=== PATIENT | male | born 1995 | race Caucasian/White ===

== ENCOUNTER 2020-08-01 14:57 | Emergency (ER) | payer MEDICAID, SELFPAY ==
[2020-08-01 17:05] VITALS: BP 146/80; PULSE 82; RESP 18; TEMP 37.1; O2SAT 100; BMI 23.7
[2020-08-01 17:47] VITALS: BP 132/82; PULSE 78; RESP 16; TEMP 36.7; O2SAT 98
--- NOTE | 2020-08-01 17:50 | ED.EYEPROB ---
HPI - Eye Problem General Chief complaint: Eye Problems Stated complaint: eye infection Time Seen by Provider: 08/01/20 17:43 Source: patient Mode of arrival: ambulatory Limitations: no limitations History of Present Illness HPI Narrative: 24 y/o male presenting with acute onset of left upper eye swelling that started yesterday. Reports mild irritated skin in his eyebrow he thought was an ingrown hair. He tried to pop it but nothing came out. When he woke up this morning the redness, pain and swelling had increased significantly. He now has some blurred vision in his left eye. Does not wear contacts or glasses. No fever or chills. MD chief complaint: eye pain and eye redness Onset (ago): day(s) (1) Onset description: sudden Duration: constant Location: left eye Eye Symptoms: burning, redness and pain Place: home Mechanism: none Severity: severe If Pain, Quality: sharp and aching Associated symptoms: none Treatments Prior to Arrival: none Related Data Previous Rx's Medication Instructions Recorded amoxicillin-pot clavulanate 1 tab PO BID #14 tab 08/01/20 [Augmentin] sulfamethoxazole-trimethoprim 1 tab PO BID #14 tab 08/01/20 [Bactrim DS] Allergies Allergy/AdvReac Type Severity Reaction Status Date / Time No Known Allergies Allergy Verified 08/01/20 17:42 [No Known Allergies*] Review of Systems Review of Systems: Constitutional: No Fever, No Chills ENT/Mouth: No sore throat, No Rhinorrhea, No Swallowing Difficulty Eyes: + Eye Pain, + Swelling, + Redness, No discharge, +blurred vision Cardiovascular: No Chest Pain, No SOB Respiratory: No Cough, No Sputum Musculoskeletal: No joint pain, No Myalgias Skin: + Skin Lesions, No rash Neuro: No Dizziness, No Headache Psych: No Anxiety/Panic, No Depression Heme/Lymph: No Bruising, No Lymphadenopathy PMFSH Past Medical History Attestation statement: The following information was validated with the patient. Social History Social History Smoking Status: Current every day smoker Substance Use Type: Marijuana Advance Directives: No Advance Directives Information Provided: No Physical Exam Vital Signs: Vital Signs: Last Vital Signs Temp 98.1 F 08/01/20 17:47 Pulse 78 08/01/20 17:47 Resp 16 08/01/20 17:47 BP 132/82 08/01/20 17:47 Pulse Ox 98 08/01/20 17:47 Body Mass Index 23.7 Appearance: Alert. Oriented X3. No acute distress. Eyes: left upper eye with significant edema, erythema and tenderness, small pustule seen within left eyebrow. EOMI. PERRLA bilaerally. no injection or discharge. ENT: Pharynx normal. Neck: Normal inspection. Neck supple. CVS: Normal heart rate and rhythm. Pulses normal. Respiratory: No respiratory distress. Breath sounds normal. Skin: Skin warm and dry. Normal skin color. Normal skin turgor. No rashes. Extremities: No lower extremity edema. Neuro: Oriented X 3. No motor deficit. No sensory deficit. Course Course Course Narrative: 24 y/o male presenting with left eye pain - upper eye/orbital erythema, tenderness, edema consistent with periorbital cellulitis. EOMI, afebrile. STAT dose of bactrim and augmentin were given here for broad coverage. Management and close follow up discussed with patient who expressed understanding. Will refer to Dr. Dyson and have him f/u with PCP tomorrow. Critical Care Time Critical Care Time Critical Care Time: No Discharge Plan Discharge Clinical Impression: Periorbital cellulitis Qualifiers: Laterality: left Qualified Code(s): L03.213 - Periorbital cellulitis Patient Disposition: Home, Self-Care Instructions: Periorbital Cellulitis in Adults (ED) Additional Instructions: Take the prescribed antibiotics for a full 7 days. Follow up with the eye doctor tomorrow. If the redness, pain, swelling get worse despite antibiotics come back to the ER [facility]. Use warm compresses to your eye several times per day. Follow up with your doctor tomorrow. Prescriptions: New sulfamethoxazole-trimethoprim [Bactrim DS] 800-160 mg tablet 1 tab PO BID Qty: 14 RF: 0 amoxicillin-pot clavulanate [Augmentin] 875-125 mg tablet 1 tab PO BID Qty: 14 RF: 0 Referrals: Trev Dyson [Physician] - 1 day (periorbital cellulitis with blurred vision)
[2020-08-01] MEDS: Amoxicillin/Potassium Clav 875 MG TABLET PO (18:00)
== END 2020-08-01 18:29 | disposition home or self-care (01) ==
LOC: HO.ED 17:57
PROVIDERS: Emergency Provider Emergency Medicine; PCP Internal Medicine
DX: L03.213 Periorbital cellulitis (principal); H57.12 Ocular pain, left eye; F17.200 Nicotine dependence, unspecified, uncomplicated; Z71.6 Tobacco abuse counseling; Z79.899 Other long term (current) drug therapy
CPT/HCPCS: 99283; 99284

== ENCOUNTER 2021-04-04 06:15 | Inpatient (IN) | payer OTHER, MEDICAID, SELFPAY ==
--- NOTE | 2021-04-04 | ECG_ITS ---
Test Reason : OVERDOSE Blood Pressure : / mmHG Vent. Rate : 070 BPM Atrial Rate : 070 BPM P-R Int : 136 ms QRS Dur : 104 ms QT Int : 394 ms P-R-T Axes : 048 089 072 degrees QTc Int : 425 ms Normal sinus rhythm with sinus arrhythmia Incomplete right bundle branch block Borderline ECG When compared with ECG of 01-AUG-2018 08:04, No significant change was found Referred By: Larissa Gong Electronically Signed By:BLANCA GIVENS
[2021-04-04 06:16] VITALS: BP 126/83; PULSE 60; RESP 10; O2SAT 98; BMI 20.8
--- NOTE | 2021-04-04 06:30 | PC.NURSE ---
Pt arrives from home by EMS, CAOx4, speaking full sentences, following commands appropriately, after intentionally ingesting approx 100 tablets of 800 mg Gabapentin. Per EMS, the quantity in the bottle was 360, filled in February. After intentional ingestion of self reported 100 tablets, per EMS, only approx 75 tablets were left from the RX. Per EMS, multiple pills of Gabapentin scattered throughout pts room. Pt self reports ingesting the Gabapentin @ 0500. Per EMS, increased family stress at home with parents. Pt Sec 12ed on scene with PD. 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 Pt states that he takes Subs but has been without them for several days. MD at bedside for eval. IV established, labs obtained. VSS at this time. Harjinder LINDER contacting Poison Control for further instructions.
[2021-04-04 06:32] LABS: MANUAL DIFF FLAG NO
--- NOTE | 2021-04-04 06:34 | ED_ITS ---
HPI - Overdose General Chief Complaint: Overdose Stated Complaint: OD Time Seen by Provider: 04/04/21 06:31 Source: patient and EMS Mode of arrival: EMS Limitations: no limitations History of Present Illness HPI Narrative: Patient comes to the emergency room via EMS after attempting suicide by ingesting approximately 100 tablets of 800 mg of gabapentin, which he ingested approximately between 5 and 05:30. Patient states that he has been having a rough time living with his parents, seems that he does not get along with his father. Patient states that he has tried committing suicide approximately 3 years ago by trying to overdose. 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 Patient was sectioned by police department for in the field. At this time, patient denies any abdominal pain, no vomiting or diarrhea, no chest pain or shortness of breath. Related Data Previous Rx's Medication Instructions Recorded amoxicillin 875 mg-potassium 1 tab PO BID #14 tab 08/01/20 clavulanate 125 mg tablet (Augmentin) sulfamethoxazole 800 1 tab PO BID #14 tab 08/01/20 mg-trimethoprim 160 mg tablet (Bactrim DS) Allergies Allergy/AdvReac Type Severity Reaction Status Date / Time No Known Allergies Allergy Verified 08/01/20 17:42 [No Known Allergies*] Review of Systems Review of Systems: Constitutional : No Weight loss, No Fever, No Chills, No Night Sweats, No Fatigue, No Malaise ENT/Mouth : No Hearing loss, No Ear Pain, No Nasal Congestion, No Sinus Pain, No Hoarseness, No sore throat, No Rhinorrhea, No Swallowing Difficulty Eyes: No Eye Pain, No Swelling, No Redness, No Foreign Body, No Discharge, No Vision Changes Cardiovascular : No Chest Pain, No SOB, No Dyspnea on Exertion, No Orthopnea, No Edema, No Palpitations Respiratory : No Cough, No Sputum, No Wheezing, No Smoke Exposure, No Dyspnea Gastrointestinal : No Nausea, No Vomiting, No Diarrhea, No Constipation, No abdominal Pain, No Hematochezia, No Melena Genitourinary : no irregular bleeding, No Dysuria, No Urinary Frequency, No Hematuria, No Urinary Incontinence, No Urgency, No Flank Pain, No Urinary Flow Changes, No Hesitancy Musculoskeletal : No joint pain, No Myalgias, No Joint Swelling Skin : No Skin Lesions, No rash Neuro : No Weakness, No Numbness, No Paresthesias, No Loss of Consciousness, No Dizziness, No Headache Psych : Complaining of severe depression, attempted suicide, no HI Heme/Lymph: No Bruising, No Bleeding,No Lymphadenopathy Endocrine : No Polyuria, No Polydipsia, No Temperature Intolerance [facility] Past Medical History Medical History (Updated 04/04/21 @ 13:33 by Larissa Gong MD) Suicide attempt Social History Social History Alcohol intake: never Patient Tobacco Use Status: Current someday Tobacco user Use of substances other than those prescribed or required for medical reasons: No Substance Use Type: Marijuana Advance Directives: No Advance Directives Information Provided: No Physical Exam Vital Signs: Vital Signs: Last Vital Signs Pulse 70 04/04/21 10:05 Resp 16 04/04/21 10:05 BP 116/86 04/04/21 10:05 Pulse Ox 98 04/04/21 10:05 Body Mass Index 20.8 Const: Other: Appearance: Alert. Oriented X3. No acute distress. Eyes: Pupils equal, round and reactive to light. ENT: Pharynx normal. Neck: Normal inspection. Neck supple. No lymph nodes noted. No crepitus CVS: Normal heart rate and rhythm. Pulses normal. Normal S1 and S2 Respiratory: No respiratory distress. Breath sounds normal. No Wheezing. No rales Abdomen: Soft and nontender. No rigidity. No distention. good BS x4 Skin: Skin warm and dry. Normal skin color. Normal skin turgor. Extremities: No lower extremity edema. No Lacerations. No Rash Neuro: Oriented X 3. No motor deficit. No sensory deficit. Moving all extermities. No slurred speech. Cranial nerves 2-12 grossly intact Psych: Flat affect, calm cooperative Course Course Course Narrative: Poison control was contacted, at this time activated charcoal and gastric lavage is not indicated. Only observation and repeat labs in 4 hours Patient is on a Section 12, [facility] consult pending Patient is still somnolent, easily arousable, vitals stable. 4 hour level salicylate and acetaminophen negative. [facility] consult pending. Physician of oanh mera started at 13:30. Vitals stable Patient was evaluated by the care team/[facility]. Patient will be admitted to on April 05 in the morning. MDM - Overdose Lab Data Result diagrams: 04/04/21 06:27 04/04/21 09:18 Labs: Lab Results 04/04/21 04/04/21 04/04/21 Range/Units 06:27 06:27 06:27 WBC 7.3 (4.8-10.8) X10*3/uL RBC 4.43 L (4.60-5.80) X10*6/uL Hgb 14.2 (14.0-18.0) g/dl Hct 41.3 L (42-52) % MCV 93.2 (80-98) fL MCH 32.1 (27.0-33.0) pg MCHC 34.4 (31.0-36.0) g/dl RDW 12.0 (11.0-16.0) % Plt Count 233 (160-400) X10*3/uL MPV 9.6 (9.4-12.4) fL Immature Gran % (Auto) 0.3 (0.0-0.4) % Neut % (Auto) 55.7 (45-73) % Lymph % (Auto) 33.0 (20-40) % [place] % (Auto) 9.8 (2-11) % Eos % (Auto) 0.8 (0-4) % Baso % (Auto) 0.4 (0-2) % Lymph # (Auto) 2.4 (1.2-4.9) X10*3/uL [place] # (Auto) 0.7 (0.1-1.2) X10*3/uL Eos # (Auto) 0.1 (0.0-0.4) X10*3/uL Baso # (Auto) 0.0 (0.0-0.2) X10*3/uL Abs Immat Gran (auto) 0.02 (0.00-0.03) X10*3/uL Absolute Neuts (auto) 4.1 (2.0-8.3) X10*3/uL Absolute Nucleated RBC 0.000 (0.0-0.012) X10*3/uL Nucleated RBC % (auto) 0.0 (0.0-0.2) /100WBC PT (9.9-13.0) SEC INR (0.9-1.1) Sodium 142 (135-145) mmol/L Potassium 3.8 (3.3-5.1) mmol/L Chloride 105 (96-108) mmol/L Carbon Dioxide 28 (22-29) mmol/L Anion Gap 13 (12-20) BUN 9 (9-16) mg/dL Creatinine 0.89 (0.5-1.4) mg/dL Estim Creat Clear Calc 126.3 Estimated GFR > 60 Random Glucose 109 (60-115) mg/dL Calcium 9.4 (8.4-10.2) mg/dL Total Bilirubin 1.7 H (0.0-1.0) mg/dL Direct Bilirubin 0.6 H (0.0-0.5) mg/dL AST 13 (5-37) U/L ALT 22 (0-40) U/L Alkaline Phosphatase 63 (39-117) U/L Total Protein 6.5 (6.5-8.0) g/dL Albumin 4.1 (3.5-5.0) g/dL Urine Color Urine Appearance Urine pH (5.0-8.0) Ur Specific [place] (1.005-1.025) Urine Protein (NEG-TRACE) MG/DL Urine Glucose (UA) (NEG) MG/DL Urine Ketones (NEG) MG/DL Urine Blood (NEG) Urine Nitrite (NEG) Ur Leukocyte Esterase (NEG) Salicylates < 5.0 L (15-30) mg/dL Urine Opiates Screen (Not Detect) Urine Fentanyl Screen (Not Detect) Acetaminophen < 1 (<30) mcg/mL Ur Barbiturates Screen (Not Detect) Ur Phencyclidine Scrn (Not Detect) Ur Amphetamines Screen (Not Detect) U Benzodiazepines Scrn (Not Detect) Urine Cocaine Screen (Not Detect) U Marijuana (THC) Screen (Not Detect) Ethyl Alcohol < 10 mg/dL COVID-19 (LIZETH) (Negative) COVID-19 Clin Com 04/04/21 04/04/21 04/04/21 Range/Units 06:27 07:58 09:18 WBC (4.8-10.8) X10*3/uL RBC (4.60-5.80) X10*6/uL Hgb (14.0-18.0) g/dl Hct (42-52) % MCV (80-98) fL MCH (27.0-33.0) pg MCHC (31.0-36.0) g/dl RDW (11.0-16.0) % Plt Count (160-400) X10*3/uL MPV (9.4-12.4) fL Immature Gran % (Auto) (0.0-0.4) % Neut % (Auto) (45-73) % Lymph % (Auto) (20-40) % [place] % (Auto) (2-11) % Eos % (Auto) (0-4) % Baso % (Auto) (0-2) % Lymph # (Auto) (1.2-4.9) X10*3/uL [place] # (Auto) (0.1-1.2) X10*3/uL Eos # (Auto) (0.0-0.4) X10*3/uL Baso # (Auto) (0.0-0.2) X10*3/uL Abs Immat Gran (auto) (0.00-0.03) X10*3/uL Absolute Neuts (auto) (2.0-8.3) X10*3/uL Absolute Nucleated RBC (0.0-0.012) X10*3/uL Nucleated RBC % (auto) (0.0-0.2) /100WBC PT 12.5 (9.9-13.0) SEC INR 1.1 (0.9-1.1) Sodium 141 (135-145) mmol/L Potassium 4.0 (3.3-5.1) mmol/L Chloride 111 H (96-108) mmol/L Carbon Dioxide 25 (22-29) mmol/L Anion Gap 9 L (12-20) BUN 8 L (9-16) mg/dL Creatinine 0.70 (0.5-1.4) mg/dL Estim Creat Clear Calc 160.6 Estimated GFR > 60 Random Glucose 103 (60-115) mg/dL Calcium 8.9 (8.4-10.2) mg/dL Total Bilirubin 1.8 H (0.0-1.0) mg/dL Direct Bilirubin 0.6 H (0.0-0.5) mg/dL AST 14 (5-37) U/L ALT 24 (0-40) U/L Alkaline Phosphatase 61 (39-117) U/L Total Protein 6.2 L (6.5-8.0) g/dL Albumin 3.9 (3.5-5.0) g/dL Urine Color Urine Appearance Urine pH (5.0-8.0) Ur Specific [place] (1.005-1.025) Urine Protein (NEG-TRACE) MG/DL Urine Glucose (UA) (NEG) MG/DL Urine Ketones (NEG) MG/DL Urine Blood (NEG) Urine Nitrite (NEG) Ur Leukocyte Esterase (NEG) Salicylates < 5.0 L (15-30) mg/dL Urine Opiates Screen (Not Detect) Urine Fentanyl Screen (Not Detect) Acetaminophen < 1 (<30) mcg/mL Ur Barbiturates Screen (Not Detect) Ur Phencyclidine Scrn (Not Detect) Ur Amphetamines Screen (Not Detect) U Benzodiazepines Scrn (Not Detect) Urine Cocaine Screen (Not Detect) U Marijuana (THC) Screen (Not Detect) Ethyl Alcohol mg/dL COVID-19 (LIZETH) Negative (Negative) COVID-19 Clin Com See Note 04/04/21 04/04/21 Range/Units 14:01 14:01 WBC (4.8-10.8) X10*3/uL RBC (4.60-5.80) X10*6/uL Hgb (14.0-18.0) g/dl Hct (42-52) % MCV (80-98) fL MCH (27.0-33.0) pg MCHC (31.0-36.0) g/dl RDW (11.0-16.0) % Plt Count (160-400) X10*3/uL MPV (9.4-12.4) fL Immature Gran % (Auto) (0.0-0.4) % Neut % (Auto) (45-73) % Lymph % (Auto) (20-40) % [place] % (Auto) (2-11) % Eos % (Auto) (0-4) % Baso % (Auto) (0-2) % Lymph # (Auto) (1.2-4.9) X10*3/uL [place] # (Auto) (0.1-1.2) X10*3/uL Eos # (Auto) (0.0-0.4) X10*3/uL Baso # (Auto) (0.0-0.2) X10*3/uL Abs Immat Gran (auto) (0.00-0.03) X10*3/uL Absolute Neuts (auto) (2.0-8.3) X10*3/uL Absolute Nucleated RBC (0.0-0.012) X10*3/uL Nucleated RBC % (auto) (0.0-0.2) /100WBC PT (9.9-13.0) SEC INR (0.9-1.1) Sodium (135-145) mmol/L Potassium (3.3-5.1) mmol/L Chloride (96-108) mmol/L Carbon Dioxide (22-29) mmol/L Anion Gap (12-20) BUN (9-16) mg/dL Creatinine (0.5-1.4) mg/dL Estim Creat Clear Calc Estimated GFR Random Glucose (60-115) mg/dL Calcium (8.4-10.2) mg/dL Total Bilirubin (0.0-1.0) mg/dL Direct Bilirubin (0.0-0.5) mg/dL AST (5-37) U/L ALT (0-40) U/L Alkaline Phosphatase (39-117) U/L Total Protein (6.5-8.0) g/dL Albumin (3.5-5.0) g/dL Urine Color YELLOW Urine Appearance HAZY Urine pH 6.5 (5.0-8.0) Ur Specific [place] 1.020 (1.005-1.025) Urine Protein TRACE (NEG-TRACE) MG/DL Urine Glucose (UA) NEG (NEG) MG/DL Urine Ketones NEG (NEG) MG/DL Urine Blood NEG (NEG) Urine Nitrite NEG (NEG) Ur Leukocyte Esterase NEG (NEG) Salicylates (15-30) mg/dL Urine Opiates Screen Not Detected (Not Detect) Urine Fentanyl Screen Not Detected (Not Detect) Acetaminophen (<30) mcg/mL Ur Barbiturates Screen Not Detected (Not Detect) Ur Phencyclidine Scrn Not Detected (Not Detect) Ur Amphetamines Screen Not Detected (Not Detect) U Benzodiazepines Scrn POSITIVE H (Not Detect) Urine Cocaine Screen POSITIVE H (Not Detect) U Marijuana (THC) Screen POSITIVE H (Not Detect) Ethyl Alcohol mg/dL COVID-19 (LIZETH) (Negative) COVID-19 Clin Com ECG Data Attestation: I personally reviewed and interpreted this ECG as follows: (Normal sinus rhythm, heart rate 70, incomplete need a right bundle-branch block, nonspecific ST segment elevation in V3 and V4, no reciprocal changes, QTC 425) Discharge Plan Discharge Clinical Impression: Suicide attempt, Gabapentin overdose Patient Disposition: Admitted As Inpatient Prescriptions: No Action sulfamethoxazole-trimethoprim [Bactrim DS] 800-160 mg tablet 1 tab PO BID Qty: 14 RF: 0 amoxicillin-pot clavulanate [Augmentin] 875-125 mg tablet 1 tab PO BID Qty: 14 RF: 0
--- NOTE | 2021-04-04 06:34 | PC.NURSE ---
this nurse contacted poison control regarding this pt. poison control stated that gabapentin by itself even in heavy amounts will only cause sedation but when taken with other substances there is a risk for seizures. 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 notified
[2021-04-04 06:41] LABS: INTERNATIONAL NORM RATIO 1.1 (0.9-1.1); Prothrombin Time 12.5 SEC (9.9-13.0)
[2021-04-04 06:47] LABS: Basophils Percent Auto 0.4 % (0-2); Eosinophils Absolute Auto 0.1 X10*3/uL (0.0-0.4); Eosinophils Percent Auto 0.8 % (0-4); Hematocrit 41.3 % (42-52); Hemoglobin 14.2 g/dl (14.0-18.0); Imm Gran Abs Auto 0.02 X10*3/uL (0.00-0.03); Imm Gran Pct Auto 0.3 % (0.0-0.4); Lymphocytes Absolute Auto 2.4 X10*3/uL (1.2-4.9); Mean Corpuscular HGB Conc 34.4 g/dl (31.0-36.0); Mean Corpuscular Hemoglobin 32.1 pg (27.0-33.0); Mean Corpuscular Volume 93.2 fL (80-98); Mean Platelet Volume 9.6 fL (9.4-12.4); Monocytes Absolute Auto 0.7 X10*3/uL (0.1-1.2); Monocytes Percent Auto 9.8 % (2-11); Neutrophils Absolute Auto 4.1 X10*3/uL (2.0-8.3); Neutrophils Percent Auto 55.7 % (45-73); Platelet Count 233 X10*3/uL (160-400); Red Blood Count 4.43 X10*6/uL (4.60-5.80); White Blood Count 7.3 X10*3/uL (4.8-10.8)
[2021-04-04 06:53] LABS: Ethanol < 10 mg/dL
[2021-04-04 06:58] LABS: Acetaminophen LAB < 1 mcg/mL (<30); Alanine Aminotransferase 22 U/L (0-40); Albumin Level 4.1 g/dL (3.5-5.0); Alkaline Phosphatase 63 U/L (39-117); Anion Gap 13 (12-20); Aspartate Amino Transferase 13 U/L (5-37); Bilirubin Direct 0.6 mg/dL (0.0-0.5); Bilirubin Total 1.7 mg/dL (0.0-1.0); Blood Urea Nitrogen 9 mg/dL (9-16); Calcium 9.4 mg/dL (8.4-10.2); Carbon Dioxide 28 mmol/L (22-29); Chloride 105 mmol/L (96-108); Creatinine Clr Calc Pharmacy 126.3; Estimated Glomerular Filt Rate > 60; Glucose Random 109 mg/dL (60-115); Potassium 3.8 mmol/L (3.3-5.1); Salicylate < 5.0 mg/dL (15-30); Sodium 142 mmol/L (135-145); Total Protein 6.5 g/dL (6.5-8.0)
--- NOTE | 2021-04-04 07:00 | PC.NURSE ---
report taken from jayme hollins pt here for intentional overdose, poison control consulted. awaiting lab results. pt vss, alert to voice. appears calm and cooperative w this rn. rr even/unlabored on ra. sitter in place for safety. pt sectioned d/t intentional overdose. wctm.
[2021-04-04 07:01] VITALS: BP 113/68; PULSE 65; RESP 16; O2SAT 97
[2021-04-04 08:02] VITALS: BP 115/65; PULSE 64; RESP 14; O2SAT 94
--- NOTE | 2021-04-04 08:03 | ECG_ITS ---
Test Reason : OVERDOSE Blood Pressure : / mmHG Vent. Rate : 064 BPM Atrial Rate : 064 BPM P-R Int : 140 ms QRS Dur : 108 ms QT Int : 418 ms P-R-T Axes : 056 082 064 degrees QTc Int : 431 ms Normal sinus rhythm Incomplete right bundle branch block Cannot rule out Anterior infarct , age undetermined Abnormal ECG When compared with ECG of 04-APR-2021 06:24, No significant change was found Referred By: Larissa Gong Electronically Signed By:BLANCA GIVENS
[2021-04-04 08:19] LABS: COVID-19 Test Negative (Negative)
--- NOTE | 2021-04-04 08:36 | PC.NURSE ---
Call from poison control , updated on pts status. recommend continued observation
[2021-04-04 10:00] LABS: Alanine Aminotransferase 24 U/L (0-40); Albumin Level 3.9 g/dL (3.5-5.0); Alkaline Phosphatase 61 U/L (39-117); Anion Gap 9 (12-20); Aspartate Amino Transferase 14 U/L (5-37); Bilirubin Direct 0.6 mg/dL (0.0-0.5); Bilirubin Total 1.8 mg/dL (0.0-1.0); Blood Urea Nitrogen 8 mg/dL (9-16); Calcium 8.9 mg/dL (8.4-10.2); Carbon Dioxide 25 mmol/L (22-29); Chloride 111 mmol/L (96-108); Creatinine Clr Calc Pharmacy 160.6; Estimated Glomerular Filt Rate > 60; Glucose Random 103 mg/dL (60-115); Sodium 141 mmol/L (135-145); Total Protein 6.2 g/dL (6.5-8.0)
[2021-04-04 10:05] VITALS: BP 116/86; PULSE 70; RESP 16; O2SAT 98
[2021-04-04 10:21] LABS: Acetaminophen LAB < 1 mcg/mL (<30); Salicylate < 5.0 mg/dL (15-30)
--- NOTE | 2021-04-04 11:30 | PC.NURSE ---
pt is sleeping resp even and unlabored.
--- NOTE | 2021-04-04 12:25 | PC.NURSE ---
[facility]A [facility]ONILLA COMPLETED AND SENT
[2021-04-04 14:10] LABS: Glucose Urine UA NEG (NEG); Leukocyte Esterase Urine NEG (NEG); Nitrite Urine NEG (NEG); PH 6.5 (5.0-8.0); Urine Blood NEG (NEG); Urine Ketones NEG (NEG); Urine Protein TRACE MG/DL (NEG-TRACE)
[2021-04-04 14:11] LABS: Appearance Urine HAZY; Color Urine YELLOW
--- NOTE | 2021-04-04 14:27 | MHC.CARE ---
Patient evaluated by CARE Team, he will need a psychiatric admission, written assessment to follow. Has been pre-accepted for tomorrow. Providers updated.
[2021-04-04 14:32] LABS: Amphetamine Screen Urine Not Detected (Not Detect); Barbiturates, Urine Not Detected (Not Detect); Benzodiazepines Screen Urine POSITIVE (Not Detect); Cannabinoid Screen Urine POSITIVE (Not Detect); Cocaine Screen Urine POSITIVE (Not Detect); Fentanyl, urine Not Detected (Not Detect); Opiate Screen Urine Not Detected (Not Detect); Phencyclidine Screen Urine Not Detected (Not Detect)
--- NOTE | 2021-04-04 14:36 | PC.NURSE ---
attempted times 2 to fax release to [employer] in regards to suboxone dosing [phone]
[2021-04-04 16:26] VITALS: BP 111/54; PULSE 64; TEMP 36.8; O2SAT 98
[2021-04-04] MEDS: Buprenorphine/Naloxone 8/2 mg FILM 1 FILM SUBLINGUAL ×2 (17:07→20:36)
--- NOTE | 2021-04-04 20:21 | MHC.CARE ---
Auth for psychiatric admission obtained: [id number] 3 days 04/05-04/07 approved by Teresa
[2021-04-04 23:38] VITALS: BP 125/73; PULSE 68; RESP 16; TEMP 36.5; O2SAT 99
--- NOTE | 2021-04-05 06:45 | PC.NURSE ---
Patient slept through the night, no distress observed/reported, medication compliant, behavior appropriate, disposition per care team inpatient bed search, VSS, will continue to monitor.
[2021-04-05 07:41] VITALS: BP 134/69; PULSE 58; RESP 20; TEMP 36.6; O2SAT 100
[2021-04-05] MEDS: Buprenorphine/Naloxone 8/2 mg FILM 1 FILM SUBLINGUAL ×2 (08:01→20:36)
[2021-04-05] MEDS: diazePAM 5 MG TABLET 10 MG PO (16:20)
[2021-04-05] MEDS: Amphetamine Mixed Salts 10 MG TABLET PO (16:20)
[2021-04-05] MEDS: Nicotine Polacrilex 2 MG GUM 4 MG BUCCAL ×2 (16:21→19:27)
[2021-04-05 16:23] VITALS: BP 136/94; PULSE 64; RESP 16; TEMP 36.8; O2SAT 100
--- NOTE | 2021-04-05 16:26 | PC.ADMIT ---
Pt admitted from [facility] on a conditional voluntary following an intentional over dose on gabapentin. Per crisis eval pt took 100 tablets of 800mg gabapentin in an attempted suicide. During admission process PT states I did what I did because I was a week into suboxone withdrawal PT denies SI at this time states once I got my dose downstairs it was a complete 180 Tox screen was positive for benzos, cocaine, and marijuana. PT states that he would like to be set up with the suboxone clinic here stating that he was 10 minutes late for an appointment at his clinic and they cancelled his appointment. PT reports he does have a problem with anxiety and depression coming out as anger, pt reports he has a lot rage. PT signed a 3-day letter upon arrival. 15 minute checks initiated for safety.
--- NOTE | 2021-04-05 20:09 | MHC.RECOVSUP ---
? Reason for consult Recovery Support o Current location: [facility] o Identified substance use concern: Heroin - Support ? Intervention: o MAT started at [facility] o Community resources provided o Harm reduction discussion ? Plan: o Referral to CCC o Patient to follow up with [facility] after discharge ? Additional information: met with Patient and we talk about recovery and Harm reduction.. Patient is on MAT and will continue with the CCC.
[2021-04-05 20:39] VITALS: BP 136/67; PULSE 97; TEMP 36.2; O2SAT 96
[2021-04-06] MEDS: hydrOXYzine HCL 25 MG TABLET PO ×2 (01:03→23:12)
[2021-04-06] MEDS: Buprenorphine/Naloxone 8/2 mg FILM 1 FILM SUBLINGUAL ×2 (08:14→20:53)
[2021-04-06] MEDS: Amphetamine Mixed Salts 10 MG TABLET PO ×2 (08:14→15:00)
[2021-04-06] MEDS: Nicotine 21 MG PATCH.TD24 TRANSDERMA (08:15)
[2021-04-06 09:00] VITALS: BP 127/60; PULSE 64; RESP 14; TEMP 37; O2SAT 100
[2021-04-06] MEDS: Nicotine Polacrilex 2 MG GUM 4 MG BUCCAL ×3 (09:40→18:08)
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
--- NOTE | 2021-04-06 18:04 | MHC.RECOVSUP ---
Per patient request I was ask to go talk with patient. Patient wanted to talk more about recovery and Goals.
[2021-04-06 19:57] VITALS: BP 148/89; PULSE 98; RESP 18; TEMP 37.3; O2SAT 100
[2021-04-06] MEDS: Lithium Carbonate ER 450 MG TABLET.ER 900 MG PO (20:52)
[2021-04-07] MEDS: Nicotine Polacrilex 2 MG GUM 4 MG BUCCAL ×4 (01:06→18:31)
[2021-04-07 06:00] VITALS: BP 130/79; PULSE 77; RESP 16; TEMP 36.9; O2SAT 96
[2021-04-07] MEDS: Nicotine 21 MG PATCH.TD24 TRANSDERMA (09:07)
[2021-04-07] MEDS: Amphetamine Mixed Salts 10 MG TABLET PO ×2 (09:09→13:53)
[2021-04-07] MEDS: Buprenorphine/Naloxone 8/2 mg FILM 1 FILM SUBLINGUAL ×2 (09:36→20:35)
--- NOTE | 2021-04-07 12:57 | P.PNPSI_ITS ---
Subjective Subjective Date of Service: 04/07/21 Reason For Visit: Suicide attempt Interim History: pt reports he slept in interview room on mattress on the floor due to new roommate who was loud all night. otherwise no questions or complaints. states he feels more even on lithium and would like to continue the trial. planning for discharge tomorrow, as his 3-day notice matures. per s taff, pleasant, friendly, journaling. doing yoga. med-compliant. denying SI/HI. planning to discharge tomorrow. Mental Status Exam Mental Status Exam Narrative: appropriately dressed and groomed. PMA of frequent positional changes. cooperative. speech incr in rate, amount. nml loudness, decr latency. thoughts linear and logical. affect full range, hyper-intense, non- labile; somewhat euphoric. no SI/HI/AVH expressed. Diagnostics Vital Signs (24Hr): Vital Signs - 24 hr 04/06/21 19:57 04/07/21 06:00 Temperature 99.2 F 98.4 F Pulse Rate 98 77 Respiratory Rate 18 16 Blood Pressure 148/89 H 130/79 Pulse Oximetry 100 96 Body Mass Index 20.8 Labs Results: 04/04/21 06:27 04/04/21 09:18 Medications Medications Current Medications Generic Name Dose Route Start Last Admin Trade Name Liliya PRN Reason Stop Dose Admin Acetaminophen 650 mg 04/05/21 14:03 Acetaminophen 325 Mg Tablet PO Q6H PRN Headache/Pain Mild Scale (1-3) Al Hydroxide/Mg Hydroxide 30 ml 04/05/21 14:03 Magnesium Hydrox/Alum Hydrox 30 Ml Oral.Susp PO Q6H PRN Heartburn/Nausea Amphetamine/Dextroamphetamine 20 mg 04/05/21 09:00 04/07/21 09:08 Dextroamphetami/Amphetamine Xr 10 Mg Cap.Er.24h PO 20 mg DAILY SUNITA Administration Amphetamine/Dextroamphetamine 10 mg 04/05/21 09:00 04/07/21 09:09 Amphetamine Mixed Salts 10 Mg Tablet PO 10 mg BID@0900,1400 SUNITA Administration Buprenorphine/Naloxone 1 film 04/04/21 21:00 04/07/21 09:36 Buprenorphine/Naloxone 8/2 Mg Film SUBLINGUAL 1 film BID SUNITA Administration Hydroxyzine HCl 25 mg 04/05/21 14:03 04/06/21 23:12 Hydroxyzine Hcl 25 Mg Tablet PO 25 mg BEDTIME PRN Administration Anxiety [place] Carbonate 900 mg 04/06/21 21:00 04/06/21 20:52 [place] Carbonate Er 450 Mg Tablet.Er PO 900 mg BEDTIME SUNITA Administration Magnesium Hydroxide 30 ml 04/05/21 14:03 Milk Of Magnesia 30 Ml Oral.Susp PO DAILY PRN Constipation Nicotine 21 mg 04/06/21 09:00 04/07/21 09:07 Nicotine 21 Mg Patch.Td24 TRANSDERMA 21 mg DAILY SUNITA Administration Nicotine Polacrilex 4 mg 04/05/21 14:03 04/07/21 10:09 Nicotine Polacrilex 2 Mg Gum BUCCAL 4 mg Q2H PRN Administration Nicotine Cravings Trazodone HCl 50 mg 04/05/21 14:03 Trazodone Hcl 50 Mg Tablet PO BEDTIME PRN Insomnia Allergies Allergies Allergy/AdvReac Type Severity Reaction Status Date / Time No Known Allergies Allergy Verified 08/01/20 17:42 [No Known Allergies*] Assessment & Plan Assessment & Plan (1) Unspecified episodic mood disorder: Status: Acute Code(s): F39 - Unspecified mood [affective] disorder Assessment and Plan: paxil and prozac made him zombified. effexor gave him SI. wellbutrin upset his stomach and gave him SI. unstable and unpredictable moods, believes mother has bipolar disorder. interested in mood stabilizer trial. (2) Opioid use disorder: Status: Acute Code(s): F11.99 - Opioid use, unspecified with unspecified opioid-induced disorder Assessment and Plan: suboxone 8 mg BID (3) ADHD: Status: Acute Code(s): F90.9 - Attention-deficit hyperactivity disorder, unspecified type Assessment and Plan: stimulants Assessment and Plan: as above. started lithium 900 mg QHS as of 04/06. tolerating well. 3-day matures 04/08. discharge to home 04/08. Greater than 50% of the session was spent on counseling and/or coordination of care Reason for contiued inpatient stay Substantial Risk for: harm to self, inability to function and rapid decompensation
[2021-04-07] MEDS: hydrOXYzine HCL 25 MG TABLET PO (13:53)
[2021-04-07] MEDS: chlorproMAZINE HCl 25 MG TABLET 50 MG PO ×2 (14:04→18:31)
[2021-04-07] MEDS: Lithium Carbonate ER 450 MG TABLET.ER 900 MG PO (20:35)
[2021-04-07 20:38] VITALS: BP 121/62; PULSE 112; TEMP 36.8; O2SAT 99
[2021-04-08 06:00] VITALS: BP 110/62; PULSE 73; RESP 18; TEMP 36.2; O2SAT 100
[2021-04-08] MEDS: Nicotine 21 MG PATCH.TD24 TRANSDERMA (08:28)
[2021-04-08] MEDS: Amphetamine Mixed Salts 10 MG TABLET PO (08:29)
[2021-04-08] MEDS: Buprenorphine/Naloxone 8/2 mg FILM 1 FILM SUBLINGUAL (09:14)
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
== END 2021-04-08 11:05 | disposition home or self-care (01) | DRG 753 ==
LOC: HO.ED 16:07 → HO.PADLT16 04-05 13:58
PROVIDERS: Admitting Provider Psychiatry & Neurology Psychiatry; Emergency Provider Emergency Medicine; Visit Provider Psychiatry & Neurology Psychiatry
DX: F39 Unspecified mood [affective] disorder (principal); R45.851 Suicidal ideations; F11.20 Opioid dependence, uncomplicated; F17.210 Nicotine dependence, cigarettes, uncomplicated; F90.9 Attention-deficit hyperactivity disorder, unspecified type; Z20.822 Contact with and (suspected) exposure to COVID-19; Z91.5 Personal history of self-harm; Z71.6 Tobacco abuse counseling; Z79.899 Other long term (current) drug therapy
CPT/HCPCS: 36415; 80048; 80053; 80076; 80143; 80179; 80307; 81003; 82077; 82248; 85025; 85610; 87635; 93005; 99285

== ENCOUNTER → 2021-04-15 10:25 | Outpatient (BNVA) | payer MEDICAID, SELFPAY | PROVIDERS: Visit Provider Internal Medicine | DX: F11.99 Opioid use, unspecified with unspecified opioid-induced disorder (principal); F90.9 Attention-deficit hyperactivity disorder, unspecified type; F14.10 Cocaine abuse, uncomplicated; F12.90 Cannabis use, unspecified, uncomplicated; F17.200 Nicotine dependence, unspecified, uncomplicated | CPT/HCPCS: 80305; 99202 ==

== ENCOUNTER → 2021-04-22 10:44 | Outpatient (BNVA) | payer MEDICAID, SELFPAY | PROVIDERS: Visit Provider Internal Medicine | DX: F11.20 Opioid dependence, uncomplicated (principal); Z51.81 Encounter for therapeutic drug level monitoring; Z79.899 Other long term (current) drug therapy | CPT/HCPCS: 80305; 99212 ==

== ENCOUNTER → 2021-05-05 09:57 | Outpatient (BNVA) | payer MEDICAID, SELFPAY | PROVIDERS: Visit Provider Nurse Practitioner Psychiatric/Mental Health | DX: Z51.81 Encounter for therapeutic drug level monitoring (principal); F11.90 Opioid use, unspecified, uncomplicated; F14.10 Cocaine abuse, uncomplicated | CPT/HCPCS: 80305; 99212 ==

== ENCOUNTER → 2021-05-12 15:41 | Outpatient (BNVA) | payer MEDICAID, SELFPAY | PROVIDERS: Visit Provider Nurse Practitioner Psychiatric/Mental Health | DX: F11.99 Opioid use, unspecified with unspecified opioid-induced disorder (principal); F14.10 Cocaine abuse, uncomplicated; F12.10 Cannabis abuse, uncomplicated; T42.6X1A Poisoning by other antiepileptic and sedative-hypnotic drugs, accidental (unintentional), initial encounter; F17.210 Nicotine dependence, cigarettes, uncomplicated; Z51.81 Encounter for therapeutic drug level monitoring | CPT/HCPCS: 80305; 99212 ==

== ENCOUNTER → 2021-06-16 14:15 | Outpatient (BNVA) | payer MEDICAID, SELFPAY | PROVIDERS: Visit Provider Nurse Practitioner Psychiatric/Mental Health | DX: Z51.81 Encounter for therapeutic drug level monitoring (principal); F11.90 Opioid use, unspecified, uncomplicated; F14.10 Cocaine abuse, uncomplicated | CPT/HCPCS: 80305; 99212 ==

== ENCOUNTER → 2021-07-07 14:55 | Outpatient (BNVA) | payer MEDICAID, SELFPAY | PROVIDERS: Visit Provider Nurse Practitioner Psychiatric/Mental Health | DX: Z51.81 Encounter for therapeutic drug level monitoring (principal); F11.20 Opioid dependence, uncomplicated | CPT/HCPCS: 80305; 99212 ==

== ENCOUNTER 2021-08-04 14:57 | Outpatient (REF) | payer MEDICAID, SELFPAY ==
[2021-08-07 07:41] LABS: Buprenorphine 62; Naloxone 119; Norbuprenorphine 253
== END 2021-08-04 14:58 | disposition home or self-care (01) ==
LOC: HO.LAB 14:57
PROVIDERS: Visit Provider Nurse Practitioner Psychiatric/Mental Health
DX: F11.99 Opioid use, unspecified with unspecified opioid-induced disorder (principal)
CPT/HCPCS: 80305; 80348; 80362; 99211

== ENCOUNTER → 2021-08-18 15:08 | Outpatient (BNVA) | payer MEDICAID, SELFPAY | PROVIDERS: Visit Provider Nurse Practitioner Psychiatric/Mental Health | DX: Z51.81 Encounter for therapeutic drug level monitoring (principal); F11.20 Opioid dependence, uncomplicated | CPT/HCPCS: 80305; 99211 ==

== ENCOUNTER → 2021-09-01 14:04 | Outpatient (BNVA) | payer MEDICAID, SELFPAY | PROVIDERS: Visit Provider Nurse Practitioner Psychiatric/Mental Health | DX: Z51.81 Encounter for therapeutic drug level monitoring (principal); F11.20 Opioid dependence, uncomplicated | CPT/HCPCS: 80305 ==

== ENCOUNTER → 2021-09-15 14:34 | Outpatient (BNVA) | payer MEDICAID, SELFPAY | PROVIDERS: Visit Provider Nurse Practitioner Psychiatric/Mental Health | DX: Z51.81 Encounter for therapeutic drug level monitoring (principal); F11.20 Opioid dependence, uncomplicated | CPT/HCPCS: 80305; 99211 ==

== ENCOUNTER → 2021-10-06 13:43 | Outpatient (BNVA) | payer MEDICAID, SELFPAY | PROVIDERS: Visit Provider Nurse Practitioner Psychiatric/Mental Health | DX: Z51.81 Encounter for therapeutic drug level monitoring (principal); F11.20 Opioid dependence, uncomplicated | CPT/HCPCS: 80305 ==

== ENCOUNTER → 2021-10-27 09:46 | Outpatient (BNVA) | payer MEDICAID, SELFPAY | PROVIDERS: Visit Provider Nurse Practitioner Psychiatric/Mental Health | DX: Z51.81 Encounter for therapeutic drug level monitoring (principal); F11.20 Opioid dependence, uncomplicated | CPT/HCPCS: 80305; 99212 ==

== ENCOUNTER 2021-11-24 09:29 | Outpatient (REF) | payer MEDICAID, SELFPAY ==
[2021-11-24 18:05] LABS: Fentanyl, urine Not Detected (Not Detect)
== END 2021-11-24 09:30 | disposition home or self-care (01) ==
LOC: HO.LAB 09:29
PROVIDERS: Visit Provider Nurse Practitioner Psychiatric/Mental Health
DX: F11.20 Opioid dependence, uncomplicated (principal); Z51.81 Encounter for therapeutic drug level monitoring; Z79.899 Other long term (current) drug therapy
CPT/HCPCS: 80305; 80307; 80348; 80362; 99211

== ENCOUNTER → 2022-01-19 10:51 | Outpatient (BNVA) | payer MEDICAID, SELFPAY | PROVIDERS: Visit Provider Nurse Practitioner Psychiatric/Mental Health | DX: Z51.81 Encounter for therapeutic drug level monitoring (principal); F11.20 Opioid dependence, uncomplicated | CPT/HCPCS: 80305; 99211 ==

== ENCOUNTER → 2022-02-16 08:54 | Outpatient (BNVA) | payer MEDICAID, SELFPAY | PROVIDERS: Visit Provider Nurse Practitioner Psychiatric/Mental Health | DX: F11.20 Opioid dependence, uncomplicated (principal) | CPT/HCPCS: 80305; 99212 ==

== ENCOUNTER → 2022-03-16 09:03 | Outpatient (BNVA) | payer MEDICAID, SELFPAY | PROVIDERS: Visit Provider Nurse Practitioner Psychiatric/Mental Health | DX: F11.21 Opioid dependence, in remission (principal); Z79.899 Other long term (current) drug therapy | CPT/HCPCS: 99212 ==

== ENCOUNTER → 2022-05-25 09:34 | Outpatient (BNVA) | payer MEDICAID, SELFPAY | PROVIDERS: Visit Provider Nurse Practitioner Psychiatric/Mental Health | DX: F11.21 Opioid dependence, in remission (principal); Z51.81 Encounter for therapeutic drug level monitoring; Z79.899 Other long term (current) drug therapy | CPT/HCPCS: 80305; 99212 ==

== ENCOUNTER → 2022-07-06 09:34 | Outpatient (BNVA) | payer MEDICAID, SELFPAY | PROVIDERS: Visit Provider Nurse Practitioner Psychiatric/Mental Health | DX: Z51.81 Encounter for therapeutic drug level monitoring (principal); F11.21 Opioid dependence, in remission | CPT/HCPCS: 80305; 99212 ==

== ENCOUNTER → 2022-09-08 09:22 | Outpatient (BNVA) | payer MEDICAID, SELFPAY | PROVIDERS: Visit Provider Nurse Practitioner Psychiatric/Mental Health | DX: F11.20 Opioid dependence, uncomplicated (principal) | CPT/HCPCS: 80305; 99212 ==

== ENCOUNTER → 2022-11-03 09:05 | Outpatient (BNVA) | payer MEDICAID, SELFPAY | PROVIDERS: Visit Provider Nurse Practitioner Psychiatric/Mental Health | DX: Z51.81 Encounter for therapeutic drug level monitoring (principal); F11.21 Opioid dependence, in remission | CPT/HCPCS: 36415; 80053; 80305; 99212 ==

== ENCOUNTER → 2023-01-03 13:14 | Outpatient (BNVA) | payer OTHER, SELFPAY | PROVIDERS: Visit Provider Nurse Practitioner Psychiatric/Mental Health | DX: F11.20 Opioid dependence, uncomplicated (principal) | CPT/HCPCS: 99212 ==

== ENCOUNTER → 2023-01-29 09:57 | Outpatient (BNVA) | payer OTHER, SELFPAY | PROVIDERS: Visit Provider Nurse Practitioner Psychiatric/Mental Health | DX: F11.20 Opioid dependence, uncomplicated (principal) | CPT/HCPCS: 96372; 99212 ==

== ENCOUNTER 2023-03-02 09:52 | Outpatient (AMB) | payer OTHER, SELFPAY ==
--- NOTE | 2023-03-02 10:17 | A.OFFVIS_ITS ---
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 Expressing some frustration around feeling tied down to medications and ultimate goal of going into the [employer]. Requesting films for now as injection has to be refilled and delivered. COUNT INCLUDES THE [facility] Medical History (Updated 01/29/23 @ 12:56 by Cinda Dinero CNP) Cocaine use disorder Gabapentin overdose Marijuana use Opioid use disorder Opioid use disorder, moderate, in early remission, dependence Suicide attempt Tobacco use disorder Social History Household Members: Family Housing: Apartment Do you presently have visiting nurse or other home services: No Alcohol intake: never Patient Tobacco Use Status: Current everyday Tobacco user Tobacco use type: Cigarette Cigarette Packs Per Day: 1 Cigarettes Per Day: 20.0 Second Hand Smoke Exposure: Yes service: No Sexual orientation: Straight/Heterosexual Review of Systems Const Reports as per HPI and Reports no additional complaints Physical Exam Vital Signs: Last Vital Signs Pulse 70 03/02/23 10:22 BP 114/70 03/02/23 10:22 Pulse Ox 99 03/02/23 10:22 Oxygen Delivery Method Room Air 03/02/23 10:22 Const General: cooperative, healthy appearing, comfortable, no acute distress and alert Nutritional Appearance: average body habitus Orientation/consciousness: patient oriented x3 Limitations: no limitations Neuro General: patient oriented x3 Psych Appearance: grossly normal Mental Status: mental status grossly normal Speech and movement: Normal speech and movement present Affect: normal affect Attitude: cooperative Thought process: Normal thought process present Thought content: Normal thought content present Insight: Good insight present (Psych) Judgement: Good judgement present (Psych) Assessment & Plan Assessment & Plan (1) Opioid use disorder, moderate, in sustained remission: Code(s): F11.21 - Opioid dependence, in remission Plan: * injection ordered * follow up 2 weeks Medications: Refilled buprenorphine-naloxone 8-2 mg (Suboxone) 2 film sublingual DAILY 30 ea 0RF Coding Level of Care Code Est Pt Level 3 (54654) Diagnoses Opioid use disorder, moderate, in sustained remission F11.
[2023-03-02 10:22] VITALS: BP 114/70; PULSE 70; O2SAT 99
== END 2023-03-02 11:26 | disposition home or self-care (01) ==
LOC: HO.HCC 09:52
PROVIDERS: Visit Provider Nurse Practitioner Psychiatric/Mental Health
DX: F11.21 Opioid dependence, in remission (principal)
CPT/HCPCS: 99213

== ENCOUNTER → 2023-03-02 09:52 | Outpatient (BNVA) | payer OTHER, SELFPAY | PROVIDERS: Visit Provider Nurse Practitioner Psychiatric/Mental Health | DX: F11.21 Opioid dependence, in remission (principal) | CPT/HCPCS: 99212 ==

== ENCOUNTER 2023-03-09 09:57 | Outpatient (AMB) | payer OTHER, SELFPAY ==
[2023-03-09 10:17] VITALS: BP 110/78; PULSE 82; O2SAT 99
--- NOTE | 2023-03-09 10:17 | MHC.OFFVIS ---
Intake Vital Signs 03/09/23 10:17 BP 110/78 Blood Pressure Location Lt brachial Position Sitting Pulse 82 Pulse Oximetry (%) 99 Intake Visit Reasons: Sub Inj Allergies No Known Allergies [No Known Allergies*] Allergy (Verified 03/02/23 10:22) HPI Sub Inj HPI Details Patient presents for follow up and Sublocade injection No questions at this time Patient brought his own lidocaine, ice packs provided by office to apply prior to injection Doing well with recovery [facility] Medical History (Updated 01/29/23 @ 12:56 by Cinda Dinero CNP) Cocaine use disorder Gabapentin overdose Marijuana use Opioid use disorder Opioid use disorder, moderate, in early remission, dependence Suicide attempt Tobacco use disorder Social History Household Members: Family Housing: Apartment Do you presently have visiting nurse or other home services: No Alcohol intake: never Patient Tobacco Use Status: Current everyday Tobacco user Tobacco use type: Cigarette Cigarette Packs Per Day: 1 Cigarettes Per Day: 20.0 Second Hand Smoke Exposure: Yes service: No Sexual orientation: Straight/Heterosexual Review of Systems Const Reports as per HPI and Reports no additional complaints Physical Exam Vital Signs: Last Vital Signs Pulse 82 03/09/23 10:17 BP 110/78 03/09/23 10:17 Pulse Ox 99 03/09/23 10:17 Const General: cooperative, healthy appearing, comfortable, no acute distress and alert Nutritional Appearance: average body habitus Orientation/consciousness: patient oriented x3 Limitations: no limitations Neuro General: patient oriented x3 Psych Appearance: grossly normal Mental Status: mental status grossly normal Speech and movement: Normal speech and movement present Affect: normal affect Attitude: cooperative Thought process: Normal thought process present Thought content: Normal thought content present Insight: Good insight present (Psych) Judgement: Good judgement present (Psych) Office Meds Sublocade ER Performing Provider: Cinda Dinero CNP Administered by: Cristiana Evans RN on 03/09/23 10:46 Dose Route Admin Location Lot Number Expiration Date [facility] Apparel Embroidery Digitizer 300 mg subcut LLQ [id number] 09/05/24 [address]-6 [employer]. Comments: T/W assessed previous INJ site, no s/s of infection, no pain, no swelling, no redness, no fever. Pt tolerated injection. Reminded to monitor for s/s above and call the [facility]. Pt verbalized understanding. Results AMB 14 Panel Urine Drug Screen Urine Marijuana (THC) Positive Last Edit by Cristiana Evans RN on 03/09/23 10:46 Urine Cocaine Negative Last Edit by Cristiana Evans RN on 03/09/23 10:46 Urine Morphine Negative Last Edit by Cristiana Evans RN on 03/09/23 10:46 Urine Methamphetamine Negative Last Edit by Cristiana Evans RN on 03/09/23 10:46 Urine Amphetamine Negative Last Edit by Cristiana Evnas RN on 03/09/23 10:46 Urine Benzodiazepine Negative Last Edit by Cristiana Evans RN on 03/09/23 10:46 Urine Barbiturates Negative Last Edit by Cristiana Evans RN on 03/09/23 10:46 Urine Methadone Negative Last Edit by Cristiana Evans RN on 03/09/23 10:46 Urine Buprenorphine Positive Last Edit by Cristiana Evans RN on 03/09/23 10:46 Urine Tricyclic Antidepressant Negative Last Edit by Cristiana Evans RN on 03/09/23 10:46 Urine MDMA Negative Last Edit by Cristiana Evans RN on 03/09/23 10:46 Urine Oxycodone Negative Last Edit by Cristiana Evans RN on 03/09/23 10:46 Urine Phencyclidine Negative Last Edit by Cristiana Evans RN on 03/09/23 10:46 Urine Propoxyphene Negative Last Edit by Cristiana Evans RN on 03/09/23 10:46 Results Reviewed Results Reviewed: Laboratory Last Values POC Urine Buprenorphine Positive 03/09/23 10:18 POC Urine Morphine Negative 03/09/23 10:18 POC Urine Oxycodone Negative 03/09/23 10:18 POC Urine Methadone Negative 03/09/23 10:18 POC Urine Propoxyphene Negative 03/09/23 10:18 POC Urine Barbiturates Negative 03/09/23 10:18 POC U Tricyclic Antidpr Negative 03/09/23 10:18 POC Urine PCP Negative 03/09/23 10:18 POC Ur Amphetamines Negative 03/09/23 10:18 POC Ur Methamphetamine Negative 03/09/23 10:18 POC Urine MDMA Negative 03/09/23 10:18 POC Ur Benzodiazepine Negative 03/09/23 10:18 POC Urine Cocaine Negative 03/09/23 10:18 POC Ur Marijuana (THC) Positive 03/09/23 10:18 Assessment & Plan Assessment & Plan (1) Opioid use disorder, moderate, in sustained remission: Code(s): F11.21 - Opioid dependence, in remission Plan: tolerated injection--reported much less discomfort this time follow up 4 weeks Orders: Orders AMB Buprenorphine Injection - Patient Supplied Today F11.21 - Opioid dependence, in remission AMB 14 Panel Urine Drug Screen Today Z51.81 - Encounter for therapeutic drug level monitoring Coding Level of Care Code Est Pt Level 3 (31974) Diagnoses Opioid use disorder, moderate, in sustained remission F11.21
== END 2023-03-09 10:35 | disposition home or self-care (01) ==
LOC: HO.HCC 09:57
PROVIDERS: Visit Provider Nurse Practitioner Psychiatric/Mental Health
DX: F11.21 Opioid dependence, in remission (principal); Z51.81 Encounter for therapeutic drug level monitoring
CPT/HCPCS: 99213; Q9992

== ENCOUNTER → 2023-03-09 09:57 | Outpatient (BNVA) | payer OTHER, SELFPAY | PROVIDERS: Visit Provider Nurse Practitioner Psychiatric/Mental Health | DX: Z51.81 Encounter for therapeutic drug level monitoring (principal); F11.21 Opioid dependence, in remission | CPT/HCPCS: 80305; 96372; 99212 ==

== ENCOUNTER 2023-04-13 09:49 | Outpatient (AMB) | payer OTHER, SELFPAY ==
--- NOTE | 2023-04-13 09:50 | AM.OFFVISNUR ---
Intake Vital Signs 04/13/23 09:57 BP 118/76 Blood Pressure Location Lt radial Position Sitting Pulse 72 Pulse Source Pulse Oximeter Pulse Oximetry (%) 98 Oxygen Delivery Method Room Air Intake Visit Reasons: Sub Inj Intake Note: the patient is here for a sub inj Aquatic Habitat Biologist Required: No Allergies No Known Allergies [No Known Allergies*] Allergy (Verified 04/13/23 09:51) Do you need a note to return to daycare/school/sports/work: No Results AMB 14 Panel Urine Drug Screen Urine Marijuana (THC) Positive Last Edit by Reta Holly CMA on 04/13/23 09:59 Urine Cocaine Negative Last Edit by Reta Holly CMA on 04/13/23 09:59 Urine Morphine Negative Last Edit by Reta Holly CMA on 04/13/23 09:59 Urine Methamphetamine Negative Last Edit by Reta Holly CMA on 04/13/23 09:59 Urine Amphetamine Negative Last Edit by Reta Holly CMA on 04/13/23 09:59 Urine Benzodiazepine Negative Last Edit by Reta Holly CMA on 04/13/23 09:59 Urine Barbiturates Negative Last Edit by Reta Holly CMA on 04/13/23 09:59 Urine Methadone Negative Last Edit by Reta Holly CMA on 04/13/23 09:59 Urine Buprenorphine Positive Last Edit by Reta Holly CMA on 04/13/23 09:59 Urine Tricyclic Antidepressant Negative Last Edit by Reta Holly CMA on 04/13/23 09:59 Urine MDMA Negative Last Edit by Reta Holly CMA on 04/13/23 09:59 Urine Oxycodone Negative Last Edit by Reta Holly CMA on 04/13/23 09:59 Urine Phencyclidine Negative Last Edit by Reta Holly CMA on 04/13/23 09:59 Urine Propoxyphene Negative Last Edit by Reta Holly CMA on 04/13/23 09:59 Coding Assessment & Plan Assessment & Plan Orders: Orders AMB 14 Panel Urine Drug Screen Today Z51.81 - Encounter for therapeutic drug level monitoring
[2023-04-13 09:57] VITALS: BP 118/76; PULSE 72; O2SAT 98
== END 2023-04-13 10:36 | disposition home or self-care (01) ==
LOC: HO.HCC 09:49
DX: F11.21 Opioid dependence, in remission (principal); Z51.81 Encounter for therapeutic drug level monitoring
CPT/HCPCS: Q9991

== ENCOUNTER → 2023-04-13 09:49 | Outpatient (BNVA) | payer OTHER, SELFPAY | DX: F11.20 Opioid dependence, uncomplicated (principal) | CPT/HCPCS: 80305; 96372 ==

== ENCOUNTER 2023-05-11 09:48 | Outpatient (AMB) | payer OTHER, SELFPAY ==
--- NOTE | 2023-05-11 08:52 | AM.OFFVISNUR ---
Intake Vital Signs 05/11/23 09:55 BP 128/74 Blood Pressure Location Lt radial Position Sitting Pulse 88 Pulse Source Pulse Oximeter Pulse Oximetry (%) 96 Oxygen Delivery Method Room Air Intake Visit Reasons: Sub Inj Intake Note: the patient presents for a sub inj Belly Roller Required: No Allergies No Known Allergies [No Known Allergies*] Allergy (Verified 05/11/23 09:56) Do you need a note to return to daycare/school/sports/work: No Nursing Note Pt presents for 4th Sublocade injection. Pt denies problems with injection sites. Pt reports wanting a couple more injections and hopes to taper off Sublocade. Pt reports last opioid use was 09/16/2018 after an overdose. Pt states I haven't touched that stuff since. Pt reports taking 150 mg TRT weekly, reports liver enzymes have decreased. 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 Pt denies questions or concerns at this time. Plan to see in 4 weeks. Office Meds Sublocade 100 mg/0.5 mL solution,extended release subcutaneous syringe Performing Provider: Cinda Dinero CNP Performing Location: [facility] Administered by: Elzbieta Iverson on 05/11/23 10:24 Dose Route Admin Location Dispensed Lot Number Expiration Date [facility] Chief Specialist Leed 100 mg subcut LLQ 0.5 mL [id number] 04/06/24 [id number] [employer]. Comments: Pt tolerated injection well. Educated on signs/symptoms of infection, encouraged to call the office with any questions or concerns. Coding Assessment & Plan Assessment & Plan Orders: Orders AMB Buprenorphine Injection - Patient Supplied Today F11.21 - Opioid dependence, in remission
[2023-05-11 09:55] VITALS: BP 128/74; PULSE 88; O2SAT 96
== END 2023-05-11 10:09 | disposition home or self-care (01) ==
DX: F11.21 Opioid dependence, in remission (principal)

== ENCOUNTER → 2023-05-11 09:48 | Outpatient (BNVA) | payer OTHER, SELFPAY | DX: Z51.81 Encounter for therapeutic drug level monitoring (principal); F11.21 Opioid dependence, in remission | CPT/HCPCS: 96372; Q9992 ==

== ENCOUNTER 2023-06-08 09:41 | Outpatient (AMB) | payer OTHER, SELFPAY ==
--- NOTE | 2023-06-08 10:56 | MHC.AM.SUB ---
Intake Vital Signs 06/08/23 10:58 BP 104/62 Blood Pressure Location Rt brachial Position Sitting Pulse 74 Pulse Source Pulse Oximeter Pulse Oximetry (%) 97 Oxygen Delivery Method Room Air Intake Visit Reasons: Sub Inj Allergies No Known Allergies [No Known Allergies*] Allergy (Verified 05/11/23 09:56) HPI Sub Inj HPI Details Pt presents for OUD follow up and treatment. 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 Denies any breakthrough symptoms, expressing no concerns about recovery at this time. States he intends to taper within the next year. [facility] Medical History (Updated 01/29/23 @ 12:56 by Cinda Dinero CNP) Opioid use disorder, moderate, in early remission, dependence Tobacco use disorder Marijuana use Cocaine use disorder Opioid use disorder Gabapentin overdose Suicide attempt Social History Household Members: Family Housing: Apartment Do you presently have visiting nurse or other home services: No Alcohol intake: never Patient Tobacco Use Status: Current everyday Tobacco user Tobacco use type: Cigarette Cigarette Packs Per Day: 1 Cigarettes Per Day: 20.0 Second Hand Smoke Exposure: Yes service: No Sexual orientation: Straight/Heterosexual Review of Systems Const Reports as per HPI Physical Exam Vital Signs: Last Vital Signs Pulse 74 06/08/23 10:58 BP 104/62 06/08/23 10:58 Pulse Ox 97 06/08/23 10:58 Oxygen Delivery Method Room Air 06/08/23 10:58 Resp Effort & Inspection: normal respiratory effort Skin General skin exam: no rashes or lesions noted Psych Appearance: grossly normal Mental Status: mental status grossly normal Speech and movement: Normal speech and movement present Affect: normal affect Insight: Good insight present (Psych) Judgement: Good judgement present (Psych) Office Meds Sublocade 100 mg/0.5 mL solution,extended release subcutaneous syringe Performing Provider: Melania Blood NP Performing Location: [facility] Administered by: Melania Blood NP on 06/08/23 11:08 Dose Route Admin Location Dispensed Lot Number Expiration Date [facility] Elastic Yarn Twister Helper 100 mg subcut RLQ 0.5 mL [id number] 05/05/24 [address]-3 [employer]. Comments: Pt tolerated injection well, reports it was the best one I've got yet , states minimal pain. Encouraged to call [facility] with questions or concerns. Assessment & Plan Assessment & Plan (1) Opioid use disorder, moderate, in sustained remission: Code(s): F11.21 - Opioid dependence, in remission Plan: Tolerated injection--reported much less discomfort this time. Discussed the Brixadi injection, provided educational literature for pt to take home. He is interested and will call next week if he would like to move forward. Follow up 4 weeks. plan reviewed with [facility] Blood Orders: Orders AMB Buprenorphine Injection - Patient Supplied Today F11.21 - Opioid dependence, in remission Coding Level of Care Code Est Pt Level 3 (87533) Diagnoses Opioid use disorder, moderate, in sustained remission F11.21
[2023-06-08 10:58] VITALS: BP 104/62; PULSE 74; O2SAT 97
== END 2023-06-08 11:00 | disposition home or self-care (01) ==
PROVIDERS: Visit Provider Nurse Practitioner Psychiatric/Mental Health
DX: F11.21 Opioid dependence, in remission (principal)
CPT/HCPCS: 99213

== ENCOUNTER → 2023-06-08 09:41 | Outpatient (BNVA) | payer OTHER, SELFPAY | PROVIDERS: Visit Provider Nurse Practitioner Psychiatric/Mental Health | DX: Z51.81 Encounter for therapeutic drug level monitoring (principal); F11.21 Opioid dependence, in remission | CPT/HCPCS: 96372; 99212; Q9992 ==

== ENCOUNTER 2023-07-06 09:26 | Outpatient (AMB) | payer OTHER, SELFPAY ==
--- NOTE | 2023-07-06 09:36 | MHC.AM.SUB ---
Intake Vital Signs 07/06/23 09:40 BP 110/70 Blood Pressure Location Lt radial Position Sitting Pulse 78 Pulse Source Pulse Oximeter Pulse Oximetry (%) 99 Oxygen Delivery Method Room Air Intake Visit Reasons: Sub Inj Intake Note: the patient presents for a sub inj Hydroelectric Plant Structural Engineer Required: No Allergies No Known Allergies [No Known Allergies*] Allergy (Verified 07/06/23 09:44) Do you need a note to return to daycare/school/sports/work: No PFSH Medical History (Updated 01/29/23 @ 12:56 by Cinda Dinero CNP) Opioid use disorder, moderate, in early remission, dependence Tobacco use disorder Marijuana use Cocaine use disorder Opioid use disorder Gabapentin overdose Suicide attempt Social History Household Members: Family Housing: Apartment Do you presently have visiting nurse or other home services: No Alcohol intake: never Patient Tobacco Use Status: Current everyday Tobacco user Tobacco use type: Cigarette Cigarette Packs Per Day: 1 Cigarettes Per Day: 20.0 Second Hand Smoke Exposure: Yes service: No Sexual orientation: Straight/Heterosexual Physical Exam Vital Signs: Last Vital Signs Pulse 78 07/06/23 09:40 BP 110/70 07/06/23 09:40 Pulse Ox 99 07/06/23 09:40 Oxygen Delivery Method Room Air 07/06/23 09:40 Assessment & Plan Assessment & Plan Orders: Orders AMB Buprenorphine Injection - Patient Supplied Today F11.21 - Opioid dependence, in remission Medications: New Sublocade ER (buprenorphine) 100 mg (0.5 mL) subcut ONCE 0.5 mL 0RF NS F11.21 - Opioid dependence, in remission Coding
[2023-07-06 09:40] VITALS: BP 110/70; PULSE 78; O2SAT 99
--- NOTE | 2023-07-06 10:01 | AM.OFFVISNUR ---
Intake Vital Signs 07/06/23 09:40 BP 110/70 Blood Pressure Location Lt radial Position Sitting Pulse 78 Pulse Source Pulse Oximeter Pulse Oximetry (%) 99 Oxygen Delivery Method Room Air Intake Visit Reasons: Sub Inj Allergies No Known Allergies [No Known Allergies*] Allergy (Verified 07/06/23 09:44) Nursing Note Pt. presents for OUD F/U and sublocade injection. Pt A&O x 4 pleasant and cooperative with care. He shared how his final goal is to taper off the sublocade injection. T/W educated pt on process of steady state and sublocade duration. Pt. reports his recovery is going well. He shared with T/W his main coping mechanism which is the gym. Pt. denies any SE from sublocade injection, systemic or local. Pt also receives counseling services through [facility]. Pt. is motivated for recovery and is actively participating in his treatment. T/W administered sublocade injection as per provider orders. Pt. will F/U in clinic in four weeks for check in and injection. Office Meds Sublocade 100 mg/0.5 mL solution,extended release subcutaneous syringe Performing Provider: Cinda Dinero CNP Performing Location: [facility] [place] Administered by: Claudette Bautista RN on 07/06/23 09:54 Dose Route Admin Location Dispensed Lot Number Expiration Date [facility] Senior Quality Assurance Specialist 100 mg subcut RUQ 0.5 mL [id number] 09/06/24 [address]-9 [employer]. Comments: Pt tolerated injection well. Educated on S/S of infection. Encouraged to call [facility] with questions/concerns. Coding Assessment & Plan Assessment & Plan Orders: Orders AMB Buprenorphine Injection - Patient Supplied Today F11.21 - Opioid dependence, in remission
== END 2023-07-06 11:50 | disposition home or self-care (01) ==
DX: F11.21 Opioid dependence, in remission (principal)

== ENCOUNTER → 2023-07-06 09:26 | Outpatient (BNVA) | payer OTHER, SELFPAY | DX: F11.21 Opioid dependence, in remission (principal); Z51.81 Encounter for therapeutic drug level monitoring; Z79.899 Other long term (current) drug therapy | CPT/HCPCS: 96372; Q9992 ==

== ENCOUNTER 2023-08-02 09:29 | Outpatient (AMB) | payer OTHER, SELFPAY ==
--- NOTE | 2023-08-02 09:31 | AM.OFFVISNUR ---
Intake Vital Signs 08/02/23 09:44 BP 116/78 Blood Pressure Location Lt radial Position Sitting Pulse 96 Pulse Source Pulse Oximeter Pulse Oximetry (%) 98 Oxygen Delivery Method Room Air Intake Visit Reasons: Sub Inj Intake Note: the patient presents for a sub inj Weave Room Supervisor Required: No Allergies No Known Allergies [No Known Allergies*] Allergy (Verified 08/02/23 09:45) Do you need a note to return to daycare/school/sports/work: No Nursing Note Patient is here for 4 week OUD follow up visit and Sublocade injection. Patient is doing well in recovery, going to the gym every morning and working about 60 hours a week. Patient states that he hopes to transition off of injections in about one year. Four week f/u appointment made. Office Meds Sublocade 100 mg/0.5 mL solution,extended release subcutaneous syringe Performing Provider: Melania Blood NP Performing Location: [facility] Administered by: Rosalinda Davenport RN on 08/02/23 10:17 Dose Route Admin Location Dispensed Lot Number Expiration Date [facility] Library Acquisitions Technician 100 mg subcut LUQ 0.5 mL [id number] 08/02/23 [address]-2 [employer]. Comments: Patient denies concerns about previous injection and tolerated injection well. Educated on signs and symptoms of infection, encouraged to call [facility] with any questions or concerns, Pt verbalized understanding. Coding Assessment & Plan Assessment & Plan Orders: Orders AMB Buprenorphine Injection - Patient Supplied Today F11.21 - Opioid dependence, in remission
[2023-08-02 09:44] VITALS: BP 116/78; PULSE 96; O2SAT 98
== END 2023-08-02 10:53 | disposition home or self-care (01) ==
DX: F11.21 Opioid dependence, in remission (principal)

== ENCOUNTER → 2023-08-02 09:29 | Outpatient (BNVA) | payer OTHER, SELFPAY | DX: F11.21 Opioid dependence, in remission (principal) | CPT/HCPCS: 96372; Q9992 ==

== ENCOUNTER 2023-08-30 10:02 | Outpatient (AMB) | payer OTHER, SELFPAY ==
--- NOTE | 2023-08-30 10:02 | AM.OFFVISNUR ---
Intake Vital Signs 08/30/23 10:10 BP 116/70 Blood Pressure Location Lt radial Position Sitting Pulse 72 Pulse Source Pulse Oximeter Pulse Oximetry (%) 97 Oxygen Delivery Method Room Air Intake Visit Reasons: Sub Inj Intake Note: The patient presents for a sub inj Tape Keller Operator Required: No Allergies No Known Allergies [No Known Allergies*] Allergy (Verified 08/02/23 09:45) Do you need a note to return to daycare/school/sports/work: No Nursing Note Patient to office today for Sublocade injection, he had no concerns or stated complications regarding previous injection. Denies any cravings, will call [facility] with any questions or concerns. Pt A+O x4, speaking in clear/full sentences, smiling and appropriate. Office Meds Sublocade 100 mg/0.5 mL solution,extended release subcutaneous syringe Performing Provider: Cinda Dinero CNP Performing Location: [facility] Administered by: Rachael Moe RN on 08/30/23 10:11 Dose Route Admin Location Dispensed Lot Number Expiration Date [facility] Dairy Feed Worker 100 mg subcut 0.5 mL [id number] 09/06/24 [address]-5 [employer]. Coding Assessment & Plan Assessment & Plan Orders: Orders AMB Buprenorphine Injection - Patient Supplied 08/30/23 F11.21 - Opioid dependence, in remission
[2023-08-30 10:10] VITALS: BP 116/70; PULSE 72; O2SAT 97
== END 2023-08-30 10:37 | disposition home or self-care (01) ==
DX: F11.21 Opioid dependence, in remission (principal)

== ENCOUNTER → 2023-08-30 10:02 | Outpatient (BNVA) | payer OTHER, SELFPAY | DX: F11.21 Opioid dependence, in remission (principal) | CPT/HCPCS: 96372; Q9992 ==

== ENCOUNTER 2023-09-28 12:50 | Outpatient (AMB) | payer OTHER, SELFPAY ==
--- NOTE | 2023-09-28 12:58 | MHC.AM.SUB ---
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, has a car now In a new relationship positive outlook, bright affect [facility] Medical History (Updated 09/29/23 @ 20:28 by Cinda Dinero CNP) Opioid use disorder, moderate, in early remission, dependence Tobacco use disorder Marijuana use Cocaine use disorder Opioid use disorder Gabapentin overdose Suicide attempt Social History Household Members: Family Housing: Apartment Do you presently have visiting nurse or other home services: No Alcohol intake: never Patient Tobacco Use Status: Current everyday Tobacco user Tobacco use type: Cigarette Cigarette Packs Per Day: 1 Cigarettes Per Day: 20.0 Second Hand Smoke Exposure: Yes service: No Sexual orientation: Straight/Heterosexual Review of Systems Const Reports as per HPI and Reports no additional complaints Physical Exam Vital Signs: Last Vital Signs BP 110/60 09/28/23 13:00 Pulse Ox 96 09/28/23 13:00 Oxygen Delivery Method Room Air 09/28/23 13:00 Resp Effort & Inspection: normal respiratory effort Skin General skin exam: no rashes or lesions noted Psych Appearance: grossly normal Mental Status: mental status grossly normal Speech and movement: Normal speech and movement present Affect: normal affect Insight: Good insight present (Psych) Judgement: Good judgement present (Psych) Office Meds Sublocade 100 mg/0.5 mL solution,extended release subcutaneous syringe Performing Provider: Cinda Dinero CNP Performing Location: [facility] Administered by: Rachael Moe RN on 09/28/23 13:02 Dose Route Admin Location Dispensed Lot Number Expiration Date [facility] Cloth Bin Packer 100 mg subcut LLQ 0.5 mL [id number] 10/04/24 [id number] [employer] Comments: Patient tolerated injection well with no stated or noted side effects. Verbally agrees to call [facility] with any comments or concerns. Assessment & Plan Assessment & Plan (1) Opioid use disorder, moderate, in sustained remission: Code(s): F11.21 - Opioid dependence, in remission Plan: tolerated injection follow up 4 weeks encouraged to call office prior to next appt if needed Orders: Orders AMB Buprenorphine Injection - Patient Supplied 09/28/23 F11.21 - Opioid dependence, in remission Coding Level of Care Code Est Pt Level 3 (51963) Diagnoses Opioid use disorder, moderate, in sustained remission F11.21
[2023-09-28 13:00] VITALS: BP 110/60; O2SAT 96
== END 2023-09-28 13:21 | disposition home or self-care (01) ==
PROVIDERS: Visit Provider Nurse Practitioner Psychiatric/Mental Health
DX: F11.21 Opioid dependence, in remission (principal)
CPT/HCPCS: 99213

== ENCOUNTER → 2023-09-28 12:50 | Outpatient (BNVA) | payer OTHER, SELFPAY | PROVIDERS: Visit Provider Nurse Practitioner Psychiatric/Mental Health | DX: Z51.81 Encounter for therapeutic drug level monitoring (principal); F11.21 Opioid dependence, in remission | CPT/HCPCS: 96372; 99212; Q9992 ==

== ENCOUNTER 2023-11-01 09:19 | Outpatient (AMB) | payer OTHER, SELFPAY ==
--- NOTE | 2023-11-01 09:26 | AM.OFFVISNUR ---
Intake Vital Signs 11/01/23 09:30 BP 122/78 Blood Pressure Location Lt radial Position Sitting Pulse 66 Pulse Source Pulse Oximeter Pulse Oximetry (%) 98 Oxygen Delivery Method Room Air Intake Visit Reasons: SUB Inj Intake Note: the patient presents for a mat visit Monkey Breeder Required: No Allergies No Known Allergies [No Known Allergies*] Allergy (Verified 11/01/23 09:31) Do you need a note to return to daycare/school/sports/work: No Nursing Note Patient to clinic for Sublocade injection today, it was given in the RUQ, patient tolerated well with no stated or noted complications. Pt is alert and oriented x4, appears in good spirits, alkative, denies cravings in between injections, acknowledges this is about a year now he has been on the injection and is doing well. Office Meds Sublocade 100 mg/0.5 mL solution,extended release subcutaneous syringe Performing Provider: iCnda Dinero CNP Performing Location: [facility] Administered by: Rachael Moe RN on 11/01/23 09:28 Dose Route Admin Location Dispensed Lot Number Expiration Date [facility] Stapler Machine 100 mg subcut RUQ 0.5 mL [id number] 10/04/24 [address]-6 [email or web address] Comments: Patient denies any questions or concerns regarding injection, tolerated well, educated on signs and symptoms to call CCC with. Coding Assessment & Plan Assessment & Plan Orders: Orders AMB Buprenorphine Injection - Patient Supplied Today F11.21 - Opioid dependence, in remission
[2023-11-01 09:30] VITALS: BP 122/78; PULSE 66; O2SAT 98
== END 2023-11-01 09:54 | disposition home or self-care (01) ==
DX: F11.21 Opioid dependence, in remission (principal)

== ENCOUNTER → 2023-11-01 09:19 | Outpatient (BNVA) | payer OTHER, SELFPAY | DX: F11.21 Opioid dependence, in remission (principal); Z51.81 Encounter for therapeutic drug level monitoring; Z79.899 Other long term (current) drug therapy | CPT/HCPCS: 96372; Q9992 ==

== ENCOUNTER 2023-11-29 09:24 | Outpatient (AMB) | payer OTHER, SELFPAY ==
[2023-11-29 09:39] VITALS: BP 118/72; PULSE 90; O2SAT 96
--- NOTE | 2023-11-29 09:39 | AM.OFFVISNUR ---
Intake Vital Signs 11/29/23 09:39 BP 118/72 Blood Pressure Location Rt brachial Position Sitting Pulse 90 Pulse Source Pulse Oximeter Pulse Oximetry (%) 96 Oxygen Delivery Method Room Air Intake Visit Reasons: SUB Inj Allergies No Known Allergies [No Known Allergies*] Allergy (Verified 11/01/23 09:31) Nursing Note Patient is here for 4 week OUD follow-up appointment and monthly Sublocade injection. Patient is alert and oriented x 4 and cooperative with care. Pt expressed no concerns with recovery and no changes in medication. Pt shared that his employment is stable and utilizes the gym daily as a coping mechanism, he stated that he has been experiencing [facility] insomnia and did not sleep well last night however, this is his baseline. Pt felt hot and dizzy immediately post injection. He was given two cups of cold water and monitored for a couple of minutes. He stated that he did not eat breakfast this morning. His vitals were rechecked and normal. Pt follow up appointment made for 4 weeks. Office Meds Sublocade 100 mg/0.5 mL solution,extended release subcutaneous syringe Performing Provider: Melania Blood NP Performing Location: [facility] Administered by: Rosalinda Davenport RN on 11/29/23 09:40 Dose Route Admin Location Dispensed Lot Number Expiration Date [facility] Javascript Software Engineer 100 mg subcut LUQ 0.5 mL [id number] 11/03/24 [address]-0 [employer]. Comments: Patient denies concerns about previous injection and tolerated injection well. Educated on signs and symptoms of infection, encouraged to call CCC with any questions or concerns, Pt verbalized understanding. Coding Assessment & Plan Assessment & Plan Orders: Orders AMB Buprenorphine Injection Today F11.21 - Opioid dependence, in remission Medications: New Sublocade ER (buprenorphine) 100 mg (0.5 mL) subcut ONCE 0.5 mL 0RF NS F11.21 - Opioid dependence, in remission
[2023-11-29 10:12] VITALS: BP 122/78
== END 2023-11-29 10:15 | disposition home or self-care (01) ==
DX: F11.21 Opioid dependence, in remission (principal)

== ENCOUNTER → 2023-11-29 09:24 | Outpatient (BNVA) | payer OTHER, SELFPAY | DX: F11.21 Opioid dependence, in remission (principal); Z79.899 Other long term (current) drug therapy; Z51.81 Encounter for therapeutic drug level monitoring | CPT/HCPCS: 96372; Q9991 ==

== ENCOUNTER 2024-01-04 11:45 | Outpatient (AMB) | payer OTHER, SELFPAY ==
[2024-01-04 11:46] VITALS: BP 132/84; PULSE 69; O2SAT 98
--- NOTE | 2024-01-04 11:46 | AM.OFFVISNUR ---
Intake Vital Signs 01/04/24 11:46 BP 132/84 Blood Pressure Location Lt brachial Position Sitting Pulse 69 Pulse Source Pulse Oximeter Pulse Oximetry (%) 98 Oxygen Delivery Method Room Air Intake Visit Reasons: SUB Inj Allergies No Known Allergies [No Known Allergies*] Allergy (Verified 11/01/23 09:31) Nursing Note Patient to office for sublocade injection, no questions or concerns with previous injection. Pt states he has been doing well in recovery, denies any cravings. Pt is a+Ox4, speaking in clear/full sentences will follow up in 4 weeks, and verbally understands to call with any questions or concerns. 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 Coding Assessment & Plan Assessment & Plan Orders: Orders AMB Buprenorphine Injection - Patient Supplied Today F11.21 - Opioid dependence, in remission Medications: New Sublocade ER (buprenorphine) 100 mg (0.5 mL) subcut ONCE 0.5 mL 0RF NS F11.21 - Opioid dependence, in remission
== END 2024-01-04 11:50 | disposition home or self-care (01) ==
DX: F11.21 Opioid dependence, in remission (principal)

== ENCOUNTER → 2024-01-04 11:45 | Outpatient (BNVA) | payer OTHER, SELFPAY | DX: F11.21 Opioid dependence, in remission (principal) | CPT/HCPCS: 96372; Q9992 ==

== ENCOUNTER 2024-02-13 10:00 | Outpatient (AMB) | payer OTHER, SELFPAY ==
--- NOTE | 2024-02-13 10:09 | AM.OFFVISNUR ---
Intake Visit Reasons: SUB Inj Allergies No Known Allergies [No Known Allergies*] Allergy (Verified 11/01/23 09:31) Nursing Note Patient to clinic today for Sublocade 100mg injection. Alert and oriented x4, denies any complications with previous injection, injection today given per orders in the LLQ. Will follow up in 5 weeks with provider and RN. Patient is considering coming off the medication , he decided to make his next appt 5 weeks out for injection instead of 4, and verbally agrees to call CCC with questions/concerns and knows that if he has cravings he can come in earlier. 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 Assessment & Plan Assessment & Plan Orders: Orders AMB Buprenorphine Injection - Patient Supplied Today F11.21 - Opioid dependence, in remission Medications: New Sublocade ER (buprenorphine) 100 mg (0.5 mL) subcut ONCE 0.5 mL 0RF NS F11.21 - Opioid dependence, in remission
== END 2024-02-13 10:36 | disposition home or self-care (01) ==
DX: F11.21 Opioid dependence, in remission (principal)

== ENCOUNTER → 2024-02-13 10:00 | Outpatient (BNVA) | payer OTHER, SELFPAY | DX: F11.21 Opioid dependence, in remission (principal) | CPT/HCPCS: 96372; Q9992 ==

== ENCOUNTER 2024-03-19 14:40 | Outpatient (AMB) | payer OTHER, SELFPAY ==
--- NOTE | 2024-03-19 14:45 | MHC.AM.SUB ---
Intake Visit Reasons: MAT visit/SUB Inj Allergies No Known Allergies [No Known Allergies*] Allergy (Verified 11/01/23 09:31) HPI HPI MAT visit/SUB Inj: Details: Patient presents for follow up and Sublocade injection Currently at 100mg Last injection was 5 weeks ago he is working towards discontinuing injection. Reports no withdrawal sx. Denies any thoughts of using Bright affect. Excited about his future and the positive things that are occurring He moved in with girlfriend 2 weeks ago living in [place] now starting School at [employer] taking 3 classes --getting certificate in Substance Use counseling [facility] Medical History (Updated 03/19/24 @ 15:03 by Cinda Dinero CNP) Opioid use disorder, moderate, in early remission, dependence Tobacco use disorder Marijuana use Cocaine use disorder Opioid use disorder Gabapentin overdose Suicide attempt Social History Household Members: Family Housing: Apartment Do you presently have visiting nurse or other home services: No Alcohol intake: never Patient Tobacco Use Status: Current everyday Tobacco user Tobacco use type: Cigarette Cigarette Packs Per Day: 1 Cigarettes Per Day: 20.0 Second Hand Smoke Exposure: Yes service: No Sexual orientation: Straight/Heterosexual Review of Systems Const Reports as per HPI and Reports no additional complaints Physical Exam Const General: cooperative, healthy appearing and well groomed Nutritional Appearance: average body habitus Orientation/consciousness: patient oriented x3 Limitations: no limitations Neuro General: patient oriented x3 Psych Appearance: well kempt Speech and movement: Clear speech present Affect: normal affect Attitude: cooperative Thought process: Normal thought process present Thought content: Normal thought content present Insight: Good insight present (Psych) Judgement: Good judgement present (Psych) Office Meds Sublocade 100 mg/0.5 mL solution,extended release subcutaneous syringe Performing Provider: Cinda Dinero CNP Performing Location: [facility] Administered by: Rachael Moe RN on 03/19/24 14:59 Dose Route Admin Location Dispensed Lot Number Expiration Date [facility] 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 Assessment & Plan Assessment & Plan (1) Opioid use disorder, moderate, in sustained remission: Code(s): F11.21 - Opioid dependence, in remission Category: Medical Plan: 100mg injection today next injection in 7 weeks encouraged to call before next injection if needed Orders: Orders AMB Buprenorphine Injection - Patient Supplied 03/19/24 F11.90 - Opioid use, unspecified, uncomplicated
== END 2024-03-19 15:07 | disposition home or self-care (01) ==
DX: F11.21 Opioid dependence, in remission (principal)
CPT/HCPCS: 99213

== ENCOUNTER → 2024-03-19 14:40 | Outpatient (BNVA) | payer OTHER, SELFPAY | DX: F11.21 Opioid dependence, in remission (principal) | CPT/HCPCS: 96372; 99212; Q9992 ==

== ENCOUNTER 2024-11-10 21:06 | Emergency (ER) | payer MEDICAID, SELFPAY ==
--- NOTE | ~2024-11-10 | CT_ITS ---
CLINICAL HISTORY: LUQ pain CT abdomen and pelvis without contrast Comparison: None Findings: The lung bases are clear. The liver, gallbladder, pancreas, spleen, adrenal glands, and kidneys are unremarkable. There is no urolithiasis or hydronephrosis. The gastrointestinal tract is unremarkable. There is no free fluid or free air. The aorta is normal in diameter. There are no enlarged lymph nodes. The bladder is decompressed. There is no fracture or suspicious lytic or sclerotic lesion. IMPRESSION: Unremarkable noncontrast CT of the abdomen and pelvis. This document has been electronically signed by: Yao Arevalo MD on 11/11/2024 02:11:16
[2024-11-10 21:17] VITALS: BP 131/52; PULSE 82; RESP 18; TEMP 36.9; O2SAT 96; BMI 24.4
[2024-11-10 21:36] LABS: MANUAL DIFF FLAG NO
[2024-11-10 21:39] LABS: Basophils Percent Auto 0.2 % (0-2); Eosinophils Absolute Auto 0.1 X10*3/uL (0.0-0.4); Eosinophils Percent Auto 0.6 % (0-4); Hematocrit 42.1 % (42.0-52.0); Hemoglobin 14.7 g/dl (14.0-18.0); Imm Gran Abs Auto 0.01 X10*3/uL (0.00-0.03); Imm Gran Pct Auto 0.1 % (0.0-0.4); Mean Corpuscular HGB Conc 34.9 g/dl (31.0-36.0); Mean Corpuscular Hemoglobin 31.7 pg (27.0-33.0); Mean Corpuscular Volume 90.9 fL (80.0-98.0); Mean Platelet Volume 9.7 fL (9.4-12.4); Monocytes Absolute Auto 0.7 X10*3/uL (0.1-1.2); Monocytes Percent Auto 7.6 % (2-11); Neutrophils Absolute Auto 5.8 x10*3/uL (2.0-8.3); Neutrophils Percent Auto 60.5 % (45-73); Platelet Count 216 X10*3/uL (160-400); Red Blood Count 4.63 X10*6/uL (4.60-5.80); White Blood Count 9.6 X10*3/uL (4.8-10.8)
[2024-11-10 21:52] LABS: Alanine Aminotransferase 13 U/L (0-40); Albumin Level 4.7 g/dL (3.5-5.0); Alkaline Phosphatase 54 U/L (39-117); Anion Gap 11 (12-20); Aspartate Amino Transferase 19 U/L (5-37); Bilirubin Total 0.6 mg/dL (0.0-1.0); Blood Urea Nitrogen 10 mg/dL (9-16); Calcium 9.2 mg/dL (8.4-10.2); Carbon Dioxide 27 mmol/L (22-29); Chloride 108 mmol/L (96-108); Creatinine Clr Calc Pharmacy 137.4; Estimated Glomerular Filt Rate > 60; Glucose Random 98 mg/dL (60-115); Lipase 9 U/L (8-78); Potassium 3.7 mmol/L (3.3-5.1); Sodium 142 mmol/L (135-145); Total Protein 7.2 g/dL (6.5-8.0)
[2024-11-11 00:31] VITALS: RESP 16
--- NOTE | 2024-11-11 00:41 | ED_ITS ---
HPI - Abdominal Pain General Chief Complaint: Abdominal Pain Stated Complaint: abd pain Time Seen by Provider: 11/11/24 00:34 Source: patient Mode of arrival: ambulatory Limitations: no limitations History of Present Illness ED Provider: DR. Purcell HPI narrative: 29-year-old male otherwise healthy complaining of left upper quadrant abdominal pain for the last 2 months, pain has been intermittent feels a lump under his left-sided ribs, patient feel palpable mass under his left rib cage, no known history injury, no dysuria, no frequency urination, no hematuria or dark urine. No fever, no chills, no rectal bleed, no nausea, no vomiting, no weight loss. Patient buys 7 Hydroxymitagynine tablet that he bite from smoke shop to help with the pain but pain is now controlled anymore. Patient last use it yesterday and he get develop symptoms of withdrawal. Related Data Previous Rx's ?Medication ?Instructions ?Recorded nicotine (polacrilex) 2 mg gum 4 mg buccal Q2H PRN Nicotine 04/08/21 Cravings 30 days #180 ea buprenorphine 100 mg/0.5 mL 100 mg (0.5 mL) subcut .monthly 12/27/23 solution,exten.rel.subcutaneous #0.5 mL syringe (Sublocade) buprenorphine 8 mg-naloxone 2 mg 1 film sublingual DAILY #10 ea 12/27/23 sublingual film (Suboxone) buprenorphine 8 mg-naloxone 2 mg 1 film buccal DAILY #21 ea 11/11/24 sublingual film (Suboxone) Allergies Allergy/AdvReac Type Severity Reaction Status Date / Time No Known Allergies Allergy Verified 11/10/24 21:19 [No Known Allergies*] Review of Systems Review of Systems All other systems are reviewed and are negative Constitutional: Reports as per HPI and Reports no additional constitutional complaints Eyes: Reports as per HPI and Reports no additional eye complaints Reports system reviewed and no additional complaints, except as documented Cardiovascular: Reports as per HPI and Reports no additional cardiovascular complaints Respiratory: Reports as per HPI and Reports no additional respiratory complaints Gastrointestinal: Reports as per HPI and Reports no additional gastrointestinal complaints Genitourinary: Reports no additional female genitourinary complaints Musculoskeletal: Reports no additional musculoskeletal complaints Skin/Breast: Reports system reviewed and no additional complaints, except as docu Psychiatric: Reports no additional psychiatric complaints Endocrine: Reports no additional endocrine complaints Hematologic/Lymphatic: Reports no additional hematologic/lymphatic complaints Allergic/Immunologic: Reports no additional allergic/immunologic complaints Reports system reviewed and no additional complaints, except as documented and Reports Abnormal speech present [facility] Past Medical History Medical History Opioid use disorder, moderate, in early remission, dependence Tobacco use disorder Marijuana use Cocaine use disorder Opioid use disorder Gabapentin overdose Suicide attempt Social History Social History Household Members: Family Housing: Apartment Do you presently have visiting nurse or other home services: No Alcohol intake: never Patient Tobacco Use Status: Current everyday Tobacco user Tobacco use type: Cigarette Cigarette Packs Per Day: 1 Cigarettes Per Day: 20.0 Second Hand Smoke Exposure: Yes Substance Use Type: Marijuana service: No Sexual orientation: Straight/Heterosexual Physical Exam ED Vital Signs: Vital Signs - 24 hr 11/10/24 21:17 11/11/24 00:31 11/11/24 02:13 Temperature 98.4 F 97.4 F Pulse Rate 82 51 Respiratory Rate 18 16 18 Blood Pressure 131/52 L 116/67 Pulse Oximetry 96 99 Oxygen Delivery Method Room Air Room Air 11/11/24 04:12 11/11/24 10:10 Temperature 98.3 F Pulse Rate 65 Respiratory Rate 16 20 Blood Pressure 133/70 Pulse Oximetry 100 Oxygen Delivery Method Room Air BMI result Body Mass Index 24.4 Vital signs have been reviewed and appear to be correct. Blood pressure elevated. Heart rate normal. Respiratory rate normal. Temperature normal. Oxygen saturation normal. Appearance: Alert. Oriented X3. No acute distress. Head: Normal external exam. Normocephalic. Atraumatic. No Clark signs noted. No raccoon eyes noted Eyes: PERRLA. EOMI. Conjunctiva and sclera normal. Eyelids normal. ENT: TM's Normal. Pharynx normal. Uvula midline. Moist mucous membranes. No trismus noted. No drooling noted. No muffled voice noted. Neck: Normal inspection. Neck supple. FROM. No adenopathy. Thyroid Normal. No meningeal signs. No neck mass noted. CVS: Normal heart rate and rhythm. Heart sound normal. No murmurs noted. Pulses normal throughout. Respiratory: No respiratory distress. Painless inspiration. Breath sounds normal. No wheezes/rales/rhonchi noted. Chest nontender. No accessory muscle usage noted or decreased air movement noted. Abdomen: Soft, left upper quadrant tenderness, no rebound tenderness, no palpable mass. Bowel sounds normal in all 4 quadrants. No distention noted. No organomegaly noted. No visible injury noted. Back: No CVA tenderness. Full range of motion noted. Skin: Skin warm and dry. Normal skin color. Normal skin turgor. No rashes/lesions/lacerations noted. Extremities: No lower extremity edema. Extremities exhibit normal range of motion. Extremities nontender. Neuro: Oriented X 3. Cranial nerve exam: II-XII are grossly intact No motor deficit. No sensory deficit. Reflexes normal. Course Reevaluation(s) Reevaluation #1: Abdominal pain, CT abdomen pelvis revealed no clear etiology of patient's symptoms, unremarkable labs, unremarkable UA. Time: 02:13 Reevaluation #2: When patient is ready to be discharged he said that he feels suicidal because he gets severe symptoms of 7 hydroxymitragynine that he by from smoke shop and he gets severe withdrawal symptoms and patient is looking for help, at this point patient is one-to-one observation and will order care team and recovery team. Patient is section 12. Time: 02:26 Reevaluation #3: Time: 08:57 Date: 11/11/24 Provider: Janice Benedict DO Patient in physician observation for psychiatric evaluation.? No acute events reported overnight. No current complaints. VS stable.? pending CARE and recovery team evaluation. Will continue to monitor. Additional Reevaluation(s): Time: 10:38 Date: 11/11/24 Provider: Janice Benedict DO Physician observation ended at 1038am. Patient has been cleared for discharge by the CARE/recovery team. Will follow up as an outpatient.Started on suboxone by [facility] Medical Decision Making Differential Diagnosis Differential Diagnoses: The differential diagnosis associated with the presentation includes (UTI, left ureteric stone, pyelonephritis, diverticulitis, colitis, pancreatitis, gallbladder disease.) Admission/Observation Consideration of admission/observation: Escalation of care including admission/observation considered Lab Data MDM Lab Attestation statement: I reviewed the patient's lab results. 11/10/24 21:33 11/10/24 21:33 Labs: Lab Results 11/10/24 11/11/24 Range/Units 21:33 00:53 WBC 9.6 (4.8-10.8) X10*3/uL RBC 4.63 (4.60-5.80) X10*6/uL Hgb 14.7 (14.0-18.0) g/dl Hct 42.1 (42.0-52.0) % MCV 90.9 (80.0-98.0) fL MCH 31.7 (27.0-33.0) pg MCHC 34.9 (31.0-36.0) g/dl RDW 12.0 (11.0-16.0) % Plt Count 216 (160-400) X10*3/uL MPV 9.7 (9.4-12.4) fL Immature Gran % (Auto) 0.1 (0.0-0.4) % Neut % (Auto) 60.5 (45-73) % Lymph % (Auto) 31.0 (20-40) % Kemper % (Auto) 7.6 (2-11) % Eos % (Auto) 0.6 (0-4) % Baso % (Auto) 0.2 (0-2) % Lymph # (Auto) 3.0 (1.2-4.9) X10*3/uL Kemper # (Auto) 0.7 (0.1-1.2) X10*3/uL Eos # (Auto) 0.1 (0.0-0.4) X10*3/uL Baso # (Auto) 0.0 (0.0-0.2) X10*3/uL Abs Immat Gran (auto) 0.01 (0.00-0.03) X10*3/uL Absolute Neuts (auto) 5.8 (2.0-8.3) x10*3/uL Absolute Nucleated RBC 0.000 (0.0-0.012) X10*3/uL Nucleated RBC % (auto) 0.0 (0.0-0.2) /100WBC Sodium 142 (135-145) mmol/L Potassium 3.7 (3.3-5.1) mmol/L Chloride 108 (96-108) mmol/L Carbon Dioxide 27 (22-29) mmol/L Anion Gap 11 L (12-20) BUN 10 (9-16) mg/dL Creatinine 0.93 (0.5-1.4) mg/dL Estim Creat Clear Calc 137.4 Estimated GFR > 60 Random Glucose 98 (60-115) mg/dL Calcium 9.2 (8.4-10.2) mg/dL Total Bilirubin 0.6 (0.0-1.0) mg/dL AST 19 (5-37) U/L ALT 13 (0-40) U/L Alkaline Phosphatase 54 (39-117) U/L Total Protein 7.2 (6.5-8.0) g/dL Albumin 4.7 (3.5-5.0) g/dL Lipase 9 (8-78) U/L Urine Color Dark Yellow Urine Appearance Clear Urine pH 5.5 (5.0-9.0) Ur Specific [place] >= 1.030 H (1.005-1.025) Urine Protein Negative (Neg-Trace) mg/dL Urine Glucose (UA) Negative (Negative) mg/dL Urine Ketones Trace (Negative) mg/dL Urine Blood Negative (Negative) Urine Nitrite Negative (Negative) Ur Leukocyte Esterase Negative (Negative) Urine Opiates Screen Not Detected (Not Detect) Ur Buprenorphine Scrn Not Detected (Not Detect) ng/mL Ur Oxycodone Screen Not Detected (Not Detect) ng/mL Urine Methadone Screen Not Detected (Not Detect) ng/mL Urine Fentanyl Screen Not Detected (Not Detect) Ur Barbiturates Screen Not Detected (Not Detect) Ur Phencyclidine Scrn Not Detected (Not Detect) Ur Amphetamines Screen Not Detected (Not Detect) U Benzodiazepines Scrn Not Detected (Not Detect) Urine Cocaine Screen Not Detected (Not Detect) U Marijuana (THC) Screen POSITIVE H (Not Detect) Independent Interpretation I performed an independent interpretation of an: CT Scan (Abdomen pelvis:Unremarkable noncontrast CT of the abdomen and pelvis.) Radiology Impression Discussion of test interpretation with radiology: I have reviewed the radiologist's reading. Medications Administered Discontinued Medications Generic Name Dose Route Start Last Admin Trade Name Freq PRN Reason Stop Dose Admin Buprenorphine/Naloxone 1 film 11/11/24 09:28 11/11/24 09:56 Buprenorphine/Naloxone 8/2 Mg Film SUBLINGUAL 11/11/24 09:29 1 film ONCE ONE Administration Diphenhydramine HCl 50 mg 11/11/24 03:01 11/11/24 03:06 Diphenhydramine Hcl 25 Mg Capsule PO 11/11/24 03:02 50 mg ONCE ONE Administration Ketorolac Tromethamine 15 mg 11/11/24 00:47 11/11/24 00:51 Ketorolac Tromethamine 15 Mg/Ml Vial IM 11/11/24 00:48 15 mg ONCE ONE Administration Lorazepam 2 mg 11/11/24 03:01 11/11/24 03:07 Lorazepam 2 Mg/Ml Vial IM 11/11/24 03:02 2 mg ONCE ONE Administration Discharge Plan Discharge Clinical Impression: Suicidal ideation Abdominal pain Qualifiers: Abdominal location: generalized Qualified Code(s): R10.84 - Generalized abdominal pain Patient Disposition: Home, Self-Care Instructions: Abdominal Pain (ED), Suicide Prevention (ED) Additional Instructions: Opiate use disorder You were seen in our Emergency Department today for treatment of opiate use disorder. You may have been dosed with medication for opiate use disorder (MOUD) in the form of suboxone or methadone. You may experience feeling some withdrawal symptoms and this is normal. The? dose in the Emergency Department is a starting dose and meant to be titrated up once you follow up with a clinic. Please do not feel discouraged, it is a process. The nurse has reviewed with you where to follow up and what information to bring with you, to continue treatment. You also may have been given naloxone (narcan) to take home with you. This medication is used to potentially treat opiate overdose. If you decide you want to stop or cut down on how much you?re using, you can call or walk into our outpatient Addiction Treatment office: [facility] (M-F 9am-5p) [address] [place] [address], [phone] You may have been provided with safer injection?items, please take time to take care of YOU and your health. Use new supplies whenever possible to lessen the chances of infections and other illnesses.? ?If you need more supplies, please go [facility],? [address] [place] [address] OR you can call or text to coordinate delivery of safer supplies. You were also provided a list of several treatment providers in the area.? If you experience any worsening symptoms you cannot control please return to the ED or call 911. Please follow up at your next appointment. Things to look out for are fevers, chest pain, shortness of breath, severe pain, dizziness, fainting or any other concerns. You were seen in our Emergency Department today for treatment of a behavioral health issue. It is important after your visit that you follow up with either your behavioral health provider or a primary care doctor within 7 days.? If you have trouble finding a therapist you can reach out to [place] [phone] [facility] [place] [facility] can be reached 7 days a week 24 hours a day.? Call [phone] to speak with someone.? Return for any worsening symptoms or concerns such as thoughts of self harm or harm to others. Please call 911 if you feel your mental health is worsening.? Prescriptions: No Action buprenorphine-naloxone [Suboxone] 8-2 mg film 1 film sublingual DAILY Qty: 10 0RF Sublocade 100 mg/0.5 mL solution, extended rel syringe 100 mg subcut .monthly Qty: 0.5 5RF Rx Instructions: F11.20 nicotine (polacrilex) 2 mg Gum 4 mg buccal Q2H PRN (Reason: Nicotine Cravings) 30 Days Qty: 180 0RF Referrals: Cinda Dinero CNP [Nurse Practitioner] - 11/26/24 1:00 pm ([facility] November 26, 2024 1:00PM [address] Please call with any questions! ) Print Language: Salvadorean
[2024-11-11] MEDS: Ketorolac Tromethamine 15 MG/ML VIAL IM (00:51)
[2024-11-11 00:59] LABS: Appearance Urine Clear; Color Urine Dark Yellow; Glucose Urine UA Negative (Negative); Leukocyte Esterase Urine Negative (Negative); Nitrite Urine Negative (Negative); PH 5.5 (5.0-9.0); Specific Gravity - Urine >= 1.030 (1.005-1.025); Urine Blood Negative (Negative); Urine Ketones Trace mg/dL (Negative); Urine Protein Negative (Neg-Trace)
[2024-11-11 02:13] VITALS: BP 116/67; PULSE 51; RESP 18; TEMP 36.3; O2SAT 99
--- NOTE | 2024-11-11 02:29 | PC.NURSE ---
patient was dc by provider. when provider and RN in room to review DC plan patient stated what are you going to do to help with my withdrawals because i will commit suicide tonight if I feel this way . patient stated he buys a drug from the marijuana dispensary that is similar to narcotics that he will with drawl from. patient then informed he now has to stay to see CARE team as well as addiction recovery. patient then stated he isnt SI and he is only here/making statements to abuse the system . patient informed he still has to stay. security at bedside and patient changed over.
[2024-11-11 02:48] LABS: Amphetamine Screen Urine Not Detected (Not Detect); Barbiturates, Urine Not Detected (Not Detect); Benzodiazepines Screen Urine Not Detected (Not Detect); Buprenorphine Scr Not Detected (Not Detect); Cannabinoid Screen Urine POSITIVE (Not Detect); Cocaine Screen Urine Not Detected (Not Detect); Fentanyl, urine Not Detected (Not Detect); Methadone Screen, Urine Not Detected (Not Detect); Opiate Screen Urine Not Detected (Not Detect); Oxycodone Screen Urine Not Detected (Not Detect); Phencyclidine Screen Urine Not Detected (Not Detect)
[2024-11-11] MEDS: diphenhydrAMINE HCL 25 MG CAPSULE 50 MG PO (03:06)
[2024-11-11] MEDS: LORazepam 2 MG/ML VIAL IM (03:07)
--- NOTE | 2024-11-11 03:10 | PC.NURSE ---
IM meds ordered, patient not aggressive and meds not used for restraints. patient requested meds to calm down, patient tearful.
[2024-11-11 04:12] VITALS: RESP 16
--- NOTE | 2024-11-11 09:34 | HO.ADDICT_ITS ---
History of Present Illness Date of Service: 11/11/2024 Chief Complaint: abd pain Reason for Consult: kratom withdrawal Sources of Information: patient interviewed and chart reviewed HPI Narrative: Patient is a 29 year old male with history of OUD, who presented to ED with abdominal pain and reporting Kratom use and withdrawal. Evaluated and cleared by our crisis team as he reported suicidal ideation in the context of withdrawal sx and despair. 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 she does suboxone and stimulants. has been maintained on suboxone for 3 years, sober from opioids for 2. h/o overdoses x2 in 2019 (accidental on opioids?) as well as most recent overdose (intentional, on gabapentin) 03/2021. [place] [facility] [place] [facility] [place]. Review of Systems Constitutional: Reports as per HPI Diagnostics Vital Signs (24Hr): Vital Signs - 24 hr 11/10/24 21:17 11/11/24 00:31 11/11/24 02:13 Temperature 98.4 F 97.4 F Pulse Rate 82 51 Respiratory Rate 18 16 18 Blood Pressure 131/52 L 116/67 Pulse Oximetry 96 99 Oxygen Delivery Method Room Air Room Air 11/11/24 04:12 Temperature Pulse Rate Respiratory Rate 16 Blood Pressure Pulse Oximetry Oxygen Delivery Method BMI result Body Mass Index 24.4 Labs 11/10/24 21:33 11/10/24 21:33 Labs: Laboratory Results - last 48 hr 11/10/24 11/11/24 21:33 00:53 WBC 9.6 RBC 4.63 Hgb 14.7 Hct 42.1 MCV 90.9 MCH 31.7 MCHC 34.9 RDW 12.0 Plt Count 216 MPV 9.7 Immature Gran % (Auto) 0.1 Neut % (Auto) 60.5 Lymph % (Auto) 31.0 [place] % (Auto) 7.6 Eos % (Auto) 0.6 Baso % (Auto) 0.2 Lymph # (Auto) 3.0 [place] # (Auto) 0.7 Eos # (Auto) 0.1 Baso # (Auto) 0.0 Abs Immat Gran (auto) 0.01 Absolute Neuts (auto) 5.8 Absolute Nucleated RBC 0.000 Nucleated RBC % (auto) 0.0 Sodium 142 Potassium 3.7 Chloride 108 Carbon Dioxide 27 Anion Gap 11 L BUN 10 Creatinine 0.93 Estim Creat Clear Calc 137.4 Estimated GFR > 60 Random Glucose 98 Calcium 9.2 Total Bilirubin 0.6 AST 19 ALT 13 Alkaline Phosphatase 54 Total Protein 7.2 Albumin 4.7 Lipase 9 Urine Color Dark Yellow Urine Appearance Clear Urine pH 5.5 Ur Specific [place] >= 1.030 H Urine Protein Negative Urine Glucose (UA) Negative Urine Ketones Trace Urine Blood Negative Urine Nitrite Negative Ur Leukocyte Esterase Negative Urine Opiates Screen Not Detected Ur Buprenorphine Scrn Not Detected Ur Oxycodone Screen Not Detected Urine Methadone Screen Not Detected Urine Fentanyl Screen Not Detected Ur Barbiturates Screen Not Detected Ur Phencyclidine Scrn Not Detected Ur Amphetamines Screen Not Detected U Benzodiazepines Scrn Not Detected Urine Cocaine Screen Not Detected U Marijuana (THC) Screen POSITIVE H Mental Status Exam Mental Status Exam Patient Appearance: Perspiring and Appropriate Patient Orientation: Person, Place, Time and Situation Level of Consciousness: Awake and Appropriate Patient Behavior: Appropriate Mood Description: Anxious Affect Description: Anxious Speech Pattern: Clear Hallucinations: None Thought Content: positive for Intact Judgement: Good Medications Allergies Allergies Allergy/AdvReac Type Severity Reaction Status Date / Time No Known Allergies Allergy Verified 11/10/24 21:19 [No Known Allergies*] Assessment & Plan Assessment & Plan (1) Opiate withdrawal: Status: Acute Code(s): F11.93 - Opioid use, unspecified with withdrawal Assessment and Plan: * kratom withdrawal (mimics opiate withdrawal) * Suboxone 8mg X1 with good effect * follow up with [facility] 11/26 @1pm for continuation of treatment * suboxone rx sent to pharmacy requested by patient--can take 1/2 to 1 film daily Total time managing care of this patient today __30__ minutes. [facility] Past Medical History Medical History Opioid use disorder, moderate, in early remission, dependence Tobacco use disorder Marijuana use Cocaine use disorder Opioid use disorder Gabapentin overdose Suicide attempt Social History Social History Household Members: Family Housing: Apartment Do you presently have visiting nurse or other home services: No Alcohol intake: never Patient Tobacco Use Status: Current everyday Tobacco user Tobacco use type: Cigarette Cigarette Packs Per Day: 1 Cigarettes Per Day: 20.0 Second Hand Smoke Exposure: Yes Substance Use Type: Marijuana service: No Sexual orientation: Straight/Heterosexual
--- NOTE | 2024-11-11 09:41 | MHC.RECOVRN ---
Pt has [facility] appt 11/26/24 at 1PM. Info on discharge paperwork.
[2024-11-11] MEDS: Buprenorphine/Naloxone 8/2 mg FILM 1 FILM SUBLINGUAL (09:56)
[2024-11-11 10:10] VITALS: BP 133/70; PULSE 65; RESP 20; TEMP 36.8; O2SAT 100
--- NOTE | 2024-11-11 11:03 | MHC.CARE ---
Contacted [facility] after faxing referrals for a 3 day follow up and 7 day alert. Kan from [facility] confirms receipt of the fax and the alert and 3 day follow up has been activated.
== END 2024-11-11 10:54 | disposition home or self-care (01) ==
PROVIDERS: Emergency Provider Emergency Medicine
DX: F11.23 Opioid dependence with withdrawal (principal); R45.851 Suicidal ideations; R10.84 Generalized abdominal pain; F11.20 Opioid dependence, uncomplicated; F39 Unspecified mood [affective] disorder; F90.9 Attention-deficit hyperactivity disorder, unspecified type; F17.210 Nicotine dependence, cigarettes, uncomplicated; F12.90 Cannabis use, unspecified, uncomplicated; Z79.899 Other long term (current) drug therapy
CPT/HCPCS: 36415; 74176; 80053; 80307; 81003; 83690; 85025; 96372; 99284; J1885; J2060; S9485

== ENCOUNTER → 2024-11-11 00:39 | Outpatient (BNV) | payer OTHER, SELFPAY | PROVIDERS: Emergency Provider Emergency Medicine; Visit Provider Radiology Diagnostic Radiology | DX: R10.12 Left upper quadrant pain (principal) | CPT/HCPCS: 74176 ==

== ENCOUNTER → 2024-11-11 01:59 | Outpatient (BNV) | payer OTHER, SELFPAY | PROVIDERS: Emergency Provider Emergency Medicine; Visit Provider Nurse Practitioner Psychiatric/Mental Health | DX: F11.93 Opioid use, unspecified with withdrawal (principal) | CPT/HCPCS: 99282 ==

== ENCOUNTER 2024-11-26 12:58 | Outpatient (AMB) | payer OTHER, SELFPAY ==
[2024-11-26 13:12] VITALS: BP 106/60; PULSE 66; O2SAT 99; BMI 22.6
--- NOTE | 2024-11-26 13:12 | MHC.OFFVIS ---
Vital Signs 11/26/24 13:12 Height 6 ft 2 in Weight 176 lb BMI 22.6 BP 106/60 Pulse 66 Pulse Oximetry (%) 99 Intake Visit Reasons: MAT Identifier Horse Required: No Allergies No Known Allergies [No Known Allergies*] Allergy (Verified 11/26/24 13:14) HPI HPI MAT: Details: I had not seen him since 2020. He had been doing well on Sublocade and then reports taking kratom from [employer] and was using more and more and couldnt stop. He started Suboxone 8/2 daily not enough . 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 He is getting narcan downstairs at pharmacy. He is engaged in [facility]. [facility] Medical History Opioid use disorder, moderate, in early remission, dependence Tobacco use disorder Marijuana use Cocaine use disorder Opioid use disorder Gabapentin overdose Suicide attempt Social History Household Members: Family Housing: Apartment Do you presently have visiting nurse or other home services: No Alcohol intake: never Patient Tobacco Use Status: Current everyday Tobacco user Tobacco use type: Cigarette Cigarette Packs Per Day: 1 Cigarettes Per Day: 20.0 Second Hand Smoke Exposure: Yes Substance Use Type: Marijuana service: No Sexual orientation: Straight/Heterosexual Review of Systems Const All systems reviewed & are unremarkable except as noted in HPI and below Physical Exam Vital Signs: Last Vital Signs Pulse 66 11/26/24 13:12 BP 106/60 11/26/24 13:12 Pulse Ox 99 11/26/24 13:12 BMI result Body Mass Index 22.6 Const General: healthy appearing Results AMB 14 Panel Urine Drug Screen Urine Marijuana (THC) Positive Last Edit by Reji Berrios CMA on 11/26/24 13:20 Urine Cocaine Negative Last Edit by Reji Berrios CMA on 11/26/24 13:20 Urine Morphine Negative Last Edit by Reji Berrios CMA on 11/26/24 13:20 Urine Methamphetamine Negative Last Edit by Rjei Berrios CMA on 11/26/24 13:20 Urine Amphetamine Negative Last Edit by Reji Berrios CMA on 11/26/24 13:20 Urine Benzodiazepine Negative Last Edit by Reji Berrios CMA on 11/26/24 13:20 Urine Barbiturates Negative Last Edit by Reji Berrios, DELIO on 11/26/24 13:20 Urine Methadone Negative Last Edit by Reji Berrios, DELIO on 11/26/24 13:20 Urine Buprenorphine Positive Last Edit by Reji Berrios, DELIO on 11/26/24 13:20 Urine Tricyclic Antidepressant Negative Last Edit by Reji Berrios, DELIO on 11/26/24 13:20 Urine MDMA Negative Last Edit by Reji Berrios, DELIO on 11/26/24 13:20 Urine Oxycodone Negative Last Edit by Reji Berrios CMA on 11/26/24 13:20 Urine Phencyclidine Negative Last Edit by Reji Berrios CMA on 11/26/24 13:20 Urine Propoxyphene Negative Last Edit by Reji Berrios CMA on 11/26/24 13:20 Results Reviewed Results Reviewed: Laboratory Last Values POC Urine Buprenorphine Positive 11/26/24 13:17 POC Urine Morphine Negative 11/26/24 13:17 POC Urine Oxycodone Negative 11/26/24 13:17 POC Urine Methadone Negative 11/26/24 13:17 POC Urine Propoxyphene Negative 11/26/24 13:17 POC Urine Barbiturates Negative 11/26/24 13:17 POC U Tricyclic Antidpr Negative 11/26/24 13:17 POC Urine PCP Negative 11/26/24 13:17 POC Ur Amphetamines Negative 11/26/24 13:17 POC Ur Methamphetamine Negative 11/26/24 13:17 POC Urine MDMA Negative 11/26/24 13:17 POC Ur Benzodiazepine Negative 11/26/24 13:17 POC Urine Cocaine Negative 11/26/24 13:17 POC Ur Marijuana (THC) Positive 11/26/24 13:17 Assessment & Plan Assessment & Plan (1) Opioid use disorder, moderate, in sustained remission: Code(s): F11.21 - Opioid dependence, in remission Category: Medical Plan: Check labs Continue counseling. Suboxone at therapeutic dose 8/2 bid, 2 weeks. Sublocade 300 when ready and then 100 monthly. 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 Orders: Orders AMB 14 Panel Urine Drug Screen Today Z51.81 - Encounter for therapeutic drug level monitoring Hepatitis A IgG Today - Opioid dependence, in remission Hepatitis B Surface Antigen Today - Opioid dependence, in remission T Spot TB Today - Opioid dependence, in remission Hepatitis C Antibody Today - Opioid dependence, in remission Hepatitis B Surface Ab Qnt Today - Opioid dependence, in remission HIV Ab/Ag Today - Opioid dependence, in remission Syphilis Screen Today - Opioid dependence, in remission Medications: New buprenorphine-naloxone 8-2 mg (Suboxone) place 1 film on inside of (each) cheek 2 film sublingual DAILY 14 days 28 ea 0RF buprenorphine ER (Sublocade) 300 mg (1.5 mL) subcut ONCE 1.5 mL 0RF Coding Level of Care Code Est Pt Level 3 (35927) Diagnoses Opioid use disorder, moderate, in sustained remission
== END 2024-11-26 13:30 | disposition home or self-care (01) ==
LOC: HO.HCC 12:58
PROVIDERS: Visit Provider Internal Medicine
DX: Z51.81 Encounter for therapeutic drug level monitoring (principal); F11.21 Opioid dependence, in remission
CPT/HCPCS: 99213

== ENCOUNTER → 2024-11-26 12:58 | Outpatient (BNVA) | payer OTHER, SELFPAY | PROVIDERS: Visit Provider Internal Medicine | DX: F11.21 Opioid dependence, in remission (principal); Z51.81 Encounter for therapeutic drug level monitoring | CPT/HCPCS: 80307; 99212 ==

== ENCOUNTER 2024-12-05 10:46 | Outpatient (AMB) | payer OTHER, SELFPAY ==
[2024-12-05 10:56] VITALS: PULSE 72; O2SAT 99
--- NOTE | 2024-12-05 10:56 | MHC.OFFVIS ---
Vital Signs 12/05/24 10:56 Height 6 ft 2 in Pulse 72 Pulse Source Pulse Oximeter Pulse Oximetry (%) 99 Oxygen Delivery Method Room Air Intake Visit Reasons: MAT Allergies No Known Allergies [No Known Allergies*] Allergy (Verified 12/05/24 10:56) HPI HPI MAT: Details: He is doing well. He is not approved for 300 mg Sublocade yet and PA is in process. He has no concerns and is not available for next two weeks. [facility] Medical History Opioid use disorder, moderate, in early remission, dependence Tobacco use disorder Marijuana use Cocaine use disorder Opioid use disorder Gabapentin overdose Suicide attempt Social History Household Members: Family Housing: Apartment Do you presently have visiting nurse or other home services: No Alcohol intake: never Patient Tobacco Use Status: Current everyday Tobacco user Tobacco use type: Cigarette Cigarette Packs Per Day: 1 Cigarettes Per Day: 20.0 Second Hand Smoke Exposure: Yes Substance Use Type: Marijuana service: No Sexual orientation: Straight/Heterosexual Review of Systems Const All systems reviewed & are unremarkable except as noted in HPI and below Physical Exam Vital Signs: Last Vital Signs Pulse 72 12/05/24 10:56 Pulse Ox 99 12/05/24 10:56 Oxygen Delivery Method Room Air 12/05/24 10:56 Results AMB 14 Panel Urine Drug Screen Urine Marijuana (THC) Positive Last Edit by Pia Serrano CMA on 12/05/24 11:01 Urine Cocaine Negative Last Edit by Pia Serrano CMA on 12/05/24 11:01 Urine Morphine Negative Last Edit by Pia Serrano CMA on 12/05/24 11:01 Urine Methamphetamine Negative Last Edit by Pia Serrano CMA on 12/05/24 11:01 Urine Amphetamine Negative Last Edit by Pia Serrano CMA on 12/05/24 11:01 Urine Benzodiazepine Negative Last Edit by Pia Serrano CMA on 12/05/24 11:01 Urine Barbiturates Negative Last Edit by Pia Serrano CMA on 12/05/24 11:01 Urine Methadone Negative Last Edit by Pia Serrano CMA on 12/05/24 11:01 Urine Buprenorphine Positive Last Edit by Pia Serrano CMA on 12/05/24 11:01 Urine Tricyclic Antidepressant Negative Last Edit by Pia Serrano CMA on 12/05/24 11:01 Urine MDMA Negative Last Edit by Pia Serrano CMA on 12/05/24 11:01 Urine Oxycodone Negative Last Edit by Pia Serrano CMA on 12/05/24 11:01 Urine Phencyclidine Negative Last Edit by Pia Serrano CMA on 12/05/24 11:01 Urine Propoxyphene Negative Last Edit by Pia Serrano CMA on 12/05/24 11:01 Results Reviewed Results Reviewed: Laboratory Last Values POC Urine Buprenorphine Positive 12/05/24 11:00 POC Urine Morphine Negative 12/05/24 11:00 POC Urine Oxycodone Negative 12/05/24 11:00 POC Urine Methadone Negative 12/05/24 11:00 POC Urine Propoxyphene Negative 12/05/24 11:00 POC Urine Barbiturates Negative 12/05/24 11:00 POC U Tricyclic Antidpr Negative 12/05/24 11:00 POC Urine PCP Negative 12/05/24 11:00 POC Ur Amphetamines Negative 12/05/24 11:00 POC Ur Methamphetamine Negative 12/05/24 11:00 POC Urine MDMA Negative 12/05/24 11:00 POC Ur Benzodiazepine Negative 12/05/24 11:00 POC Urine Cocaine Negative 12/05/24 11:00 POC Ur Marijuana (THC) Positive 12/05/24 11:00 Assessment & Plan Assessment & Plan (1) Opiate withdrawal: Comment: He is doing well Code(s): F11.93 - Opioid use, unspecified with withdrawal Category: Medical Plan Continue Suboxone strips until Sublocade approved. Orders: Orders AMB 14 Panel Urine Drug Screen Today Z51.81 - Encounter for therapeutic drug level monitoring Medications: New buprenorphine-naloxone 8-2 mg (Suboxone) place 1 film on inside of (each) cheek 2 film sublingual DAILY 14 days 28 ea 0RF Coding Level of Care Code Est Pt Level 3 (64144) Diagnoses Opiate withdrawal F11.93
== END 2024-12-05 11:17 | disposition home or self-care (01) ==
LOC: HO.HCC 10:47
PROVIDERS: Visit Provider Internal Medicine
DX: Z51.81 Encounter for therapeutic drug level monitoring (principal); F11.93 Opioid use, unspecified with withdrawal
CPT/HCPCS: 99213

== ENCOUNTER → 2024-12-05 10:46 | Outpatient (BNVA) | payer OTHER, SELFPAY | PROVIDERS: Visit Provider Internal Medicine | DX: F11.23 Opioid dependence with withdrawal (principal); Z51.81 Encounter for therapeutic drug level monitoring | CPT/HCPCS: 80307; 99212 ==

== ENCOUNTER 2024-12-26 10:34 | Outpatient (AMB) | payer OTHER, SELFPAY ==
--- NOTE | 2024-12-26 10:53 | MHC.OFFVIS ---
Vital Signs 12/26/24 10:54 Height 6 ft 2 in Pulse 69 Pulse Oximetry (%) 99 Intake Visit Reasons: Injection Allergies No Known Allergies [No Known Allergies*] Allergy (Verified 12/26/24 11:04) HPI Comments Details: He has no complaints [facility] Medical History Opioid use disorder, moderate, in early remission, dependence Tobacco use disorder Marijuana use Cocaine use disorder Opioid use disorder Gabapentin overdose Suicide attempt Social History Household Members: Family Housing: Apartment Do you presently have visiting nurse or other home services: No Alcohol intake: never Patient Tobacco Use Status: Current everyday Tobacco user Tobacco use type: Cigarette Cigarette Packs Per Day: 1 Cigarettes Per Day: 20.0 Second Hand Smoke Exposure: Yes Substance Use Type: Marijuana service: No Sexual orientation: Straight/Heterosexual Review of Systems Const All systems reviewed & are unremarkable except as noted in HPI and below Physical Exam Vital Signs: Last Vital Signs Pulse 69 12/26/24 10:54 Pulse Ox 99 12/26/24 10:54 Const General: cooperative Assessment & Plan Assessment & Plan (1) Opioid use disorder, moderate, in sustained remission: Comment: He has been doing well Code(s): F11.21 - Opioid dependence, in remission Category: Medical Plan: Continue Sublocade. See as needed. Medications: New buprenorphine-naloxone 8-2 mg (Suboxone) 1 film sublingual BID 6 ea 0RF 3 days buprenorphine ER (Sublocade) 300 mg (1.5 mL) subcut ONCE 1.5 mL 0RF 2 doses buprenorphine ER (Sublocade) 300 mg (1.5 mL) subcut ONCE 1.5 mL 0RF buprenorphine ER (Sublocade) 300 mg (1.5 mL) subcut ONCE 1.5 mL 0RF 2 doses Coding Level of Care Code Est Pt Level 3 (12907) Diagnoses Opioid use disorder, moderate, in sustained remission F11.21
[2024-12-26 10:54] VITALS: PULSE 69; O2SAT 99
== END 2024-12-26 11:27 | disposition home or self-care (01) ==
LOC: HO.HCC 10:35
PROVIDERS: Visit Provider Internal Medicine
DX: F11.21 Opioid dependence, in remission (principal)
CPT/HCPCS: 99213

== ENCOUNTER → 2024-12-26 10:34 | Outpatient (BNVA) | payer OTHER, SELFPAY | PROVIDERS: Visit Provider Internal Medicine | DX: F11.21 Opioid dependence, in remission (principal) | CPT/HCPCS: 99212 ==

== ENCOUNTER 2025-01-26 11:10 | Outpatient (AMB) | payer MEDICAID, SELFPAY ==
[2025-01-26 11:14] VITALS: BP 119/68; PULSE 102; O2SAT 98
--- NOTE | 2025-01-26 11:14 | MHC.OFFVIS ---
Vital Signs 01/26/25 11:14 Height 6 ft 2 in BP 119/68 Blood Pressure Location Lt brachial Position Sitting Pulse 102 H Pulse Source Pulse Oximeter Pulse Oximetry (%) 98 Intake Visit Reasons: MAT injection Allergies No Known Allergies (No Known Allergies*) Allergy (Verified 01/26/25 11:15) PFSH Medical History Opioid use disorder, moderate, in early remission, dependence Tobacco use disorder Marijuana use Cocaine use disorder Opioid use disorder Gabapentin overdose Suicide attempt Social History Household Members: Family Housing: Apartment Do you presently have visiting nurse or other home services: No Alcohol intake: never Patient Tobacco Use Status: Current everyday Tobacco user Tobacco use type: Cigarette Cigarette Packs Per Day: 1 Cigarettes Per Day: 20.0 Second Hand Smoke Exposure: Yes Substance Use Type: Marijuana service: No Sexual orientation: Straight/Heterosexual Physical Exam Vital Signs: Last Vital Signs Pulse 102 H 01/26/25 11:14 BP 119/68 01/26/25 11:14 Pulse Ox 98 01/26/25 11:14 Office Meds Sublocade 300 mg/1.5 mL solution,extended release subcutaneous syringe Performing Provider: Tameka Riley MD Performing Location: [facility] Administered by: Tameka Riley MD on 01/26/25 12:17 Dose Route Admin Location Dispensed Lot Number Expiration Date [facility] [place] 2[place] Clinical Ob 300 mg subcut right lower abdomen 1.5 mL [id number] 08/06/25 [address]-6 [employer]. Total Dispensed Waste 1.5 mL 0 % Assessment & Plan Assessment & Plan (1) Opioid use disorder, moderate, in sustained remission: Comment: He has been doing well Code(s): F11.21 - Opioid dependence, in remission Category: Medical Orders: Orders AMB Buprenorphine Injection - Patient Supplied Today F11.21 - Opioid dependence, in remission AMB Buprenorphine Injection - Patient Supplied Today F11.21 - Opioid dependence, in remission Medications: New Sublocade ER (buprenorphine) 300 mg (1.5 mL) subcut ONCE 1.5 mL 0RF NS F11.21 - Opioid dependence, in remission buprenorphine ER (Sublocade) 100 mg (0.5 mL) subcut ONCE 0.5 mL 5RF buprenorphine ER (Sublocade) 100 mg (0.5 mL) subcut ONCE 0.5 mL 5RF 2 doses Coding Diagnoses Opioid use disorder, moderate, in sustained remission F11.21
== END 2025-01-26 12:51 | disposition home or self-care (01) ==
LOC: HO.HCC 11:10
PROVIDERS: Visit Provider Internal Medicine
DX: F11.21 Opioid dependence, in remission (principal)

== ENCOUNTER → 2025-01-26 11:10 | Outpatient (BNVA) | payer MEDICAID, SELFPAY | PROVIDERS: Visit Provider Internal Medicine | DX: F11.21 Opioid dependence, in remission (principal); Z79.899 Other long term (current) drug therapy | CPT/HCPCS: 96372; 99212; Q9992 ==

== ENCOUNTER 2025-02-25 10:20 | Outpatient (AMB) | payer MEDICAID, SELFPAY ==
--- NOTE | 2025-02-25 10:13 | AM.OFFVISNUR ---
Vital Signs 02/25/25 10:29 Height 6 ft 2 in Weight 79.832 kg BMI 22.6 BP 154/94 H Blood Pressure Location Lt brachial Position Sitting Pulse 82 Pulse Source Pulse Oximeter Pulse Oximetry (%) 99 Oxygen Delivery Method Room Air Intake Visit Reasons: Injection Allergies No Known Allergies (No Known Allergies*) Allergy (Verified 02/25/25 10:29) Nursing Note Cabrera presents for his 4 week Sublocade injection. He is alert and oriented X 4, calm and cooperative and presents with appropriate affect. Work and home life are going well, no complaints. Working second shift and several extra hours but loves his job. Follow-up in 4 weeks for nexr injection. Office Meds Sublocade 100 mg/0.5 mL solution,extended release subcutaneous syringe Performing Provider: Tameka Riley MD Performing Location: [facility] Administered by: Rosalinda Davenport RN on 02/25/25 10:46 Dose Route Admin Location Dispensed Lot Number Expiration Date [facility] Inward Toll Operator 100 mg subcut LUQ 0.5 mL [id number] 12/03/25 [address]-1 [employer] Total Dispensed Waste 0.5 mL 0 % Comments: Pt here for 100mg Sublocade, denies complications with previous injections and tolerated injection well. Pt educated on signs and symptoms of infection at injection site, urged to call [facility] with any questions or concerns. Follow up appointment made for 4 weeks. Assessment & Plan Assessment & Plan Orders: Orders AMB Buprenorphine Injection - Patient Supplied Today F11.21 - Opioid dependence, in remission Coding
[2025-02-25 10:29] VITALS: BP 154/94; PULSE 82; O2SAT 99; BMI 22.6
== END 2025-02-25 11:07 | disposition home or self-care (01) ==
LOC: HO.HCC 10:20
DX: F11.21 Opioid dependence, in remission (principal)

== ENCOUNTER → 2025-02-25 10:20 | Outpatient (BNVA) | payer MEDICAID, SELFPAY | DX: F11.21 Opioid dependence, in remission (principal) | CPT/HCPCS: 96372; Q9992 ==

== ENCOUNTER 2025-03-26 09:57 | Outpatient (AMB) | payer MEDICAID, SELFPAY ==
--- NOTE | 2025-03-26 10:18 | AM.OFFVISNUR ---
Intake Visit Reasons: injection Allergies No Known Allergies (No Known Allergies*) Allergy (Verified 02/25/25 10:29) Nursing Note Cabrera presents for his 4 week Sublocade 100 mg injection. He is alert and oriented X 4, calm and cooperative and presents with appropriate affect. Work is going well, no complaints. Recovery is stable, no complaints. He is hoping to discontinue the injections after a couple more. Updated Sublocade ID wallet card given. Follow-up in 4 weeks for next injection. Office Meds Sublocade 100 mg/0.5 mL solution,extended release subcutaneous syringe Performing Provider: Tameka Riley MD Performing Location: [facility] Administered by: Rosalinda Davenport RN on 03/26/25 10:34 Dose Route Admin Location Dispensed Lot Number Expiration Date [facility] Grain Unloader Machine 100 mg subcut RLQ 0.5 mL [id number] 07/05/25 [address]-7 [employer] Total Dispensed Waste 0.5 mL 0 % Comments: Pt is present for 100 mg Sublocade injection, pt denies complications with previous injections and tolerated injection well. Pt educated on signs and symptoms of infection at the injection site, urged to call [facility] with any questions or concerns. Follow up appointment made in 4 weeks for next injection. Assessment & Plan Assessment & Plan Orders: Orders AMB Buprenorphine Injection - Patient Supplied Today F11.21 - Opioid dependence, in remission Coding
--- OUTSIDE RECORDS SUMMARY | 2025-03-26 11:21 | XMS_ITS | Clinical Summary ---
Author Organization [facility] Address [address] [place] [phone] Phone Care Team Providers [facility] Education Director Name Role Phone Pcp, Unknown Primary Care Provider Unavailabl e Allergies No known active allergies Medications No known medications Social History Tobacco Use Types Packs/Day Years Used Date Smoking Tobacco: Every Day Smokeless Tobacco: Never Alcohol Use Standard Drinks/Week Comments Not Currently 0 (1 standard drink = 0.6 oz pur e alcohol) Education Answer Date Recorded Are you interested in more education? Not on mark anthony e 12/01/2022 Are you concerned about learning? Not on file 12/01/2022 No 12/01/2022 No 12/01/2022 Digital Access Answer Date Recorded No 01/02/2023 No 01/02/2023 No 01/02/2023 Reliable internet access at home? Not on file 01/02/2023 Device with a working camera? Not on file Intimate Partner Violence Answer Date R ecorded Are you denied basic needs s uch as food, clothing, or medical care? No 08/21/2024 In the past 12 months have y ou been in a relationship with a person who hurts, threatens, or tries to control you? No 08/21/2024 Are you denied basic needs s uch as food, clothing, or medical care? No 08/21/2024 In the past 12 months have y ou been in a relationship with a person who hurts, threatens, or tries to control you? No 08/21/2024 Sex and Gender Information Value Date Recorded Sex Assigned at Male 08/04/2020 1:26 PM EST Legal Sex Male 4:19 PM EST Gender Identity Male 08/04/2020 1:26 PM EST Sexual Orientation Choose not to disclose 2019 1:26 PM EST Last Filed Vital Signs Vital Sign Reading Time Taken Comments Blood Pressure 142/75 08/21/2024 6:07 PM EST Pulse 58 08/21/2024 6:07 PM EST Temperature 36.4 C (97.5 F) 08/21/2024 6:07 PM EST Respiratory Rate 16 08/21/2024 6:07 PM EST Oxygen Saturation 99% 08/21/2024 6:07 PM EST Inhaled Oxygen Concentration - - Weight 86.2 kg (190 lb) 08/21/2024 1:53 PM EST Height 188 cm (6' 2 ) 08/21/2024 1:53 PM EST Body Mass Index 24.39 08/21/2024 1:53 PM EST Plan of Treatment Health Maintenance Due Date Last Done Comments Adult Td,Tdap Booster 1996 DEPRESSION SCREENING 2008 SMOKING Hx and SMOKELESS TOB ACCO SCREENING 2009 HEPATITIS C SCREENING 2014 HIV ONE-TIME SCREENING (18-6 5 YEARS) 2014 PNEUMOCOCCAL VACCINES (0-49 years) (1 of 2 - PCV) 10/17/2015 COVID-19 VACCINE ( - 2023-2 5 season) 2024 HEPATITIS A VACCINES Aged Out No long er eligible based on patient's age to complete this topic HIB VACCINES Aged Out No longer eligi ble based on patient's age to complete this topic MENINGOCOCCAL VACCINES (ACWY) Aged Out No longer eligible based on patient's age to complete this topic MENINGOCOCCAL VACCINES (B) Aged Out N o longer eligible based on patient's age to complete this topic Medical Devices Not on file [facility] [place] [facility] Care Teams Academy Education Director Relationship Specialty Start Date End Date Pcp, Unknown PCP - General 08/21/24 Additional Source Comments The information contained in this document represents components of the legal health record. It is not the complete legal health record.[facility]
== END 2025-03-26 11:22 | disposition home or self-care (01) ==
LOC: HO.HCC 09:57
DX: F11.21 Opioid dependence, in remission (principal)

== ENCOUNTER → 2025-03-26 09:57 | Outpatient (BNVA) | payer BC, SELFPAY | DX: F11.21 Opioid dependence, in remission (principal) | CPT/HCPCS: 96372; Q9992 ==

== ENCOUNTER 2025-04-23 13:39 | Outpatient (AMB) | payer BC, SELFPAY ==
--- NOTE | 2025-04-23 13:39 | AM.OFFVISNUR ---
Vital Signs 04/23/25 13:44 Height 6 ft 2 in Weight 80.739 kg BMI 22.9 BP 110/78 Pulse 78 Pulse Oximetry (%) 97 Intake Visit Reasons: injection Allergies No Known Allergies (No Known Allergies*) Allergy (Verified 04/23/25 13:46) Nursing Note Cabrera presented today as a walk in due to family issue, grandmother was taken off support and placed ATTENDING PHYSICIAN. Cabrera is alert, oriented and cooperative with care, no negative symptoms reported. Follow up in 4 weeks for next injection. Office Meds Sublocade 100 mg/0.5 mL solution,extended release subcutaneous syringe Performing Provider: Tameka Riley MD Performing Location: [facility] Administered by: Rosalinda Davenport RN on 04/23/25 14:00 Dose Route Admin Location Dispensed Lot Number Expiration Date [facility] Armored Vehicle Officer 100 mg subcut LUQ 0.5 mL [id number] 01/03/26 [address]-2 [employer] Total Dispensed Waste 0.5 mL 0 % Comments: Pt is present for 100 mg Sublocade injection, pt denies complications with previous injections and tolerated injection well. Pt educated on signs and symptoms of infection at the injection site, urged to call [facility] with any questions or concerns. Follow up appointment made in 4 weeks for next injection. Assessment & Plan Assessment & Plan Orders: Orders AMB Buprenorphine Injection - Patient Supplied Today F11.21 - Opioid dependence, in remission Coding
[2025-04-23 13:44] VITALS: BP 110/78; PULSE 78; O2SAT 97; BMI 22.9
--- OUTSIDE RECORDS SUMMARY | 2025-04-23 15:37 | XMS_ITS | Encounter Summary ---
Author Organization [facility] Address [address] [place] [address] [place] [phone] Phone Care Team Providers Care Digital Commentator Name Role Phone Milo Armando MD Primary Care Provide r Pcp, Unknown Primary Care Provider Unavailabl e Encounter Details Date Type Department Care Team (Late st Contact Info) Description 08/04/2020 Procedure Pass [facility], Ct Scan - [address] [address] Social History Tobacco Use Types Packs/Day Years Used Date Smoking Tobacco: Every Day Smokeless Tobacco: Never Alcohol Use Standard Drinks/Week Comments Not Currently 0 (1 standard drink = 0.6 oz pur e alcohol) Sex and Gender Information Value Date Recorded Sex Assigned at Male 08/04/2020 1:26 PM EST Legal Sex Male 4:19 PM EST Gender Identity Male 08/04/2020 1:26 PM EST Sexual Orientation Choose not to disclose 2019 1:26 PM EST documented as of this encounter Functional Status * Calculated C-SSRS Risk Score (Lifetime/Recent) Answer Date of Assessment Author No Risk Indicated 08/04/2020 1:25 PM Doug Muhammad RN * [place] Suicide Severity Rating Scale (Screener/Recent Self-Report) Question Answer Date of Assessment Author 1. Wish to be (Past 1 Month) No 08/04/2020 1:25 PM Flaco Vitale RN 2. Non-Specific Active Suici chas Thoughts (Past 1 Month) No 08/04/2020 1:25 PM Eduar Vitale RN 6. Suicidal Behavior (Lifetime) No 0 1:25 PM Doug Vitale RN documented as of this encounter Plan of Treatment Not on file documented as of this encounter Visit Diagnoses Not on filedocumented in this encounter Care Teams Digital Commentator Relationship Specialty Start Date End Date Milo Armando MD PCP - General Internal Medicine 08/04/20 08/20/24 Pcp, Unknown PCP - General 08/21/24 documented as of this encounter Additional Source Comments The information contained in this document represents components of the legal health record. It is not the complete legal health record.[facility]
--- OUTSIDE RECORDS SUMMARY | 2025-04-23 15:37 | XMS_ITS | Clinical Summary ---
Author Organization [facility] Address [address] [place] [phone] Phone Care Team Providers Care Accounting Recruiter Name Role Phone Pcp, Unknown Primary Care [...] years) (1 of 2 - PCV) 10/17/2015 INFLUENZA VACCINE (#1) 2025 COVID-19 VACCINE ( - 2023-2 5 season) 2025 HEPATITIS A VACCINES Aged Out No long [...] topic Medical Devices Not on file Insurance [employer] [place] [facility] Care Teams Accounting Recruiter Relationship Specialty Start Date End Date Pcp, Unknown PCP - General 08/21/24 Additional Source Comments The information contained in this document represents components of the legal health record. It is not the complete legal health record.[facility]
== END 2025-04-23 14:10 | disposition home or self-care (01) ==
LOC: HO.HCC 13:39
PROVIDERS: Visit Provider Internal Medicine
DX: F11.21 Opioid dependence, in remission (principal)

== ENCOUNTER → 2025-04-23 13:39 | Outpatient (BNVA) | payer BC, SELFPAY | PROVIDERS: Visit Provider Internal Medicine | DX: F11.21 Opioid dependence, in remission (principal); Z79.899 Other long term (current) drug therapy | CPT/HCPCS: 96372; Q9992 ==

== ENCOUNTER 2025-05-20 09:04 | Outpatient (AMB) | payer BC, SELFPAY ==
--- NOTE | 2025-05-20 07:50 | AM.OFFVISNUR ---
Vital Signs 05/20/25 09:15 BP 118/78 Pulse 110 H Pulse Oximetry (%) 99 Intake Visit Reasons: Injecton Allergies No Known Allergies (No Known Allergies*) Allergy (Verified 05/20/25 09:16) Nursing Note Cabrera presents for his 4 week Sublocade 100 mg injection. He is alert and oriented X 4, calm and cooperative and presents with appropriate affect. Work is going well- he is not picking up any more overtime this month to give himself a break. Recovery is stable, no complaints. Speaking about transitioning off, painful; discussed other locations and will call and discuss other options available. Follow up in 4 weeks for the next injection. Office Meds Sublocade 100 mg/0.5 mL solution,extended release subcutaneous syringe Performing Provider: Tameka Riley MD Performing Location: [facility] Administered by: Rosalinda Davenport RN on 05/20/25 09:27 Dose Route Admin Location Dispensed Lot Number Expiration Date [facility] Steam Drier Operator 100 mg subcut LLQ 0.5 mL [id number] 01/03/26 [address]-5 [employer] Total Dispensed Waste 0.5 mL 0 % Comments: Pt is present for 100 mg Sublocade injection, pt denies complications with previous injections and tolerated injection well. Pt educated on signs and symptoms of infection at the injection site, urged to call [facility] with any questions or concerns. Follow up appointment made in 4 weeks for next injection. Assessment & Plan Assessment & Plan Orders: Orders AMB Buprenorphine Injection - Patient Supplied Today F11.21 - Opioid dependence, in remission Coding
[2025-05-20 09:15] VITALS: BP 118/78; PULSE 110; O2SAT 99
--- OUTSIDE RECORDS SUMMARY | 2025-05-20 09:53 | XMS_ITS | Clinical Summary ---
Author Organization [facility] Address [address] [place] [phone] Phone Care Team Providers Care Stereo Plotter Operator Name Role Phone Pcp, Unknown Primary Care [...] 10/17/2015 INFLUENZA VACCINE (#1) 2025 COVID-19 VACCINE (1 - 2024-2 6 season) 2025 HEPATITIS A VACCINES Aged Out [...] topic Medical Devices Not on file Insurance [employer] [place] [facility] Care Teams Stereo Plotter Operator Relationship Specialty Start Date End Date Pcp, Unknown PCP - General 08/21/24 Additional Source Comments The information contained in this document represents components of the legal health record. It is not the complete legal health record.[facility]
--- OUTSIDE RECORDS SUMMARY | 2025-05-20 09:53 | XMS_ITS | Encounter Summary ---
Author Organization [facility] Address [address] [place] [address] [place] [phone] Phone Care Team Providers Care Dough Catcher Name Role Phone Milo Armando MD Primary Care Provide r Pcp, Unknown Primary Care Provider Unavailabl e Encounter Details Date Type Department Care Team (Late st Contact Info) Description 08/04/2020 Procedure Pass [facility], Ct Scan - [address] [address] Social History Tobacco Use Types Packs/Day Years [...] 08/04/2020 1:25 PM Doug Muhammad RN * [place] Suicide Severity Rating Scale (Screener/Recent Self-Report) Question [...] on filedocumented in this encounter Care Teams Dough Catcher Relationship Specialty Start Date End Date Milo Armando MD PCP - General Internal Medicine 08/04/20 08/20/24 Pcp, Unknown PCP - General 08/21/24 documented as of this encounter Additional Source Comments The information contained in this document represents components of the legal health record. It is not the complete legal health record.[facility]
== END 2025-05-20 09:37 | disposition home or self-care (01) ==
LOC: HO.HCC 09:04
DX: F11.21 Opioid dependence, in remission (principal)

== ENCOUNTER → 2025-05-20 09:04 | Outpatient (BNVA) | payer BC, SELFPAY | DX: F11.21 Opioid dependence, in remission (principal) | CPT/HCPCS: 96372; Q9992 ==

== ENCOUNTER 2025-06-23 11:03 | Outpatient (AMB) | payer BC, SELFPAY ==
--- NOTE | 2025-06-23 11:04 | AM.OFFVISNUR ---
Vital Signs 06/23/25 11:16 BP 118/70 Pulse 100 Pulse Oximetry (%) 98 Intake Visit Reasons: Sublocade/INJ. Allergies No Known Allergies (No Known Allergies*) Allergy (Verified 06/23/25 11:16) Nursing Note Cabrera presents for his 4 week Sublocade 100 mg injection. He is alert and oriented X 4, calm and cooperative and presents with appropriate affect. Cabrera is interested in transitioning to the Brixadi injection due to pain level associated with the Sublocade injection. He has agreed to receive this Sublocade as it is due and available, will discuss feasibility of transition with provider and follow up with Cabrera. Follow up injection appointment in 4 weeks. Office Meds Sublocade 100 mg/0.5 mL solution,extended release subcutaneous syringe Performing Provider: Tameka Riley MD Performing Location: [facility] Administered by: Rosalinda Davenport RN on 06/23/25 11:37 Dose Route Admin Location Dispensed Lot Number Expiration Date [facility] After School Driver 100 mg subcut RLQ 0.5 mL [id number] 03/05/26 [address]-0 [employer] Total Dispensed Waste 0.5 mL 0 % Comments: Pt is present for 100 mg Sublocade injection, pt denies complications with previous injections and tolerated injection well. Pt educated on signs and symptoms of infection at the injection site, urged to call [facility] with any questions or concerns. Follow up appointment made in 4 weeks for next injection. Assessment & Plan Assessment & Plan Orders: Orders AMB Buprenorphine Injection - Patient Supplied Today F11.21 - Opioid dependence, in remission Coding
[2025-06-23 11:16] VITALS: BP 118/70; PULSE 100; O2SAT 98
== END 2025-06-23 11:53 | disposition home or self-care (01) ==
LOC: HO.HCC 11:03
PROVIDERS: Visit Provider Clinical Nurse Specialist Psychiatric/Mental Health
DX: F11.21 Opioid dependence, in remission (principal)

== ENCOUNTER → 2025-06-23 11:03 | Outpatient (BNVA) | payer BC, SELFPAY | PROVIDERS: Visit Provider Clinical Nurse Specialist Psychiatric/Mental Health | DX: F11.21 Opioid dependence, in remission (principal) | CPT/HCPCS: 96372; Q9992 ==